=== PATIENT | male | born 1950 | race Caucasian/White ===

== ENCOUNTER 2023-05-15 00:21 | Day surgery (SDC) | payer MEDICARE, SELFPAY ==
[2023-04-18 12:18] VITALS: BMI 27.0
--- NOTE | 2023-05-13 11:14 | SUR.PREOP ---
Patient called regarding upcoming procedure. Voicemail left regarding appointment times.
--- NOTE | 2023-05-14 14:06 | PM.HPGS ---
History of Present Illness History of Present Illness Consent: Risks, benefits, and alternatives have been discussed and questions answered. Patient agrees to proceed with procedure. Chief complaint: neoplasm screening Narrative: Sajan Norman is a 72 year old male Referred for colon cancer screening. His last colonoscopy was about 11 years ago. he apparently had polyps removed at that time. Also his father and brother have had colon cancer Review of Systems Review of Systems: All systems reviewed & are unremarkable except as noted in HPI and below PMFSH Past Medical History Medical History BPH with urinary obstruction Dyslipidemia H pylori ulcer Hypertension Nonischemic cardiomyopathy EF 20% -ICD placed 07/13/2022 [facility] Olecranon bursitis of left elbow MARLIN on CPAP Sleep study 09/09/2015-[facility] 55.8 with SpO2 < 88% for 21% of the time Renal cancer Right kidney, status post right nephrectomy Rotator cuff injury Surgical History Surgical History H/O kidney removal History of nephrectomy, right Family History Family History Other Hypertension Social History Social History Smoking packs per day: 1 Smoking cigarettes per day: 20.0 Years smoked: 30 Smoking pack-years: 30.00 Smoking status: Former smoker Tobacco type: cigarettes Alcohol intake: current Drinks per week: 20 Alcohol use details: HARD LIQUOR Substance use: never Substance use type: does not use Living arrangements: alone Occupation/Education: retired Gender identity (if verbalized by the patient): Male Spiritual care concerns: No Meds Home Medications and Allergies Home Medications Medication Instructions Recorded Confirmed Type tamsulosin 0.4 mg capsule 0.4 mg PO DAILY 12/20/21 05/15/23 History aspirin 81 mg tablet,delayed 81 mg PO DAILY 12/21/21 05/15/23 History release (Adult Aspirin Regimen) ferrous sulfate 325 mg (65 mg 325 mg PO TID 12/21/21 05/15/23 History iron) tablet (Feosol) finasteride 5 mg tablet 5 mg PO DAILY 12/21/21 05/15/23 History etflktjlusao-hvu-kmqpb acid-vit 1 tablet PO DAILY 01/31/22 05/15/23 History K-lycop 400 mcg-20 mcg-370 mcg tablet (One-A-Day Men's 50 Plus (with vitamin K)) furosemide 40 mg tablet 40 mg PO QAM 08/06/22 05/15/23 History hydralazine 50 mg tablet 50 mg PO BID 08/06/22 05/15/23 History metoprolol succinate 25 mg 25 mg PO DAILY 08/06/22 05/15/23 History tablet,extended release 24 hr omeprazole 20 mg capsule,delayed See Rx Instructions .Route 03/07/23 05/15/23 Rx release .COMPLEX #90 caps atorvastatin 20 mg tablet 20 mg PO DAILY 03/20/23 05/15/23 History cholecalciferol (vitamin D3) 25 125 mcg PO DAILY 03/20/23 05/15/23 History mcg (1,000 unit) capsule irbesartan 300 mg tablet 300 mg PO DAILY 03/20/23 05/15/23 History Allergies Allergy/AdvReac Type Severity Reaction Status Date / Time amlodipine AdvReac Intermediate Other Verified 05/15/23 07:30 latex tape AdvReac Intermediate Swelling Uncoded 05/15/23 07:30 Exam Resp: Auscultation: clear to auscultation bilaterally Cardio: Rate: regular rate Rhythm: regular rhythm GI: GI Palp: Yes Soft to palpation and No Tenderness to palpation present (GI) Assessment and Plan Assessment and plan (1) Colon cancer screening: Code(s): Z12.11 - Encounter for screening for malignant neoplasm of colon Status: Acute Assessment and Plan: Colonoscopy with possible biopsy or polypectomy or cautery or injection of substances.
[2023-05-15 07:33] VITALS: BP 137/82; PULSE 90; RESP 16; TEMP 36.1; O2SAT 98
[2023-05-15] MEDS: LACTATED RINGERS 1,000 ML 150 ML IV CONT (07:45)
--- NOTE | 2023-05-15 08:06 | WPDANESEPPF ---
Anes - Initial Pre Proc Eval Procedure: Operation Date: 05/15/23 08:30 Proposed Procedures p Screening Colonoscopy - Raffy Mitchell MD Date/Time: 05/15/23 08:06 Surgeon: Raffy Mitchell MD Pre Op Diagnosis: neoplasm screening Patient Data Age: 72 Gender: M Height: 1.8 m Weight: 87.1 kg Last Vital Signs Temp 97.0 F L 05/15/23 07:33 Pulse 90 05/15/23 07:33 Resp 16 05/15/23 07:33 BP 137/82 05/15/23 07:33 Pulse Ox 98 05/15/23 07:33 O2 Del Method Room Air 05/15/23 07:33 Allergies Allergy/AdvReac Type Severity Reaction Status Date / Time amlodipine AdvReac Intermediate Other Verified 05/15/23 07:30 latex tape AdvReac Intermediate Swelling Uncoded 05/15/23 07:30 Home Medications Medication Instructions Recorded Confirmed Type tamsulosin 0.4 mg capsule 0.4 mg PO DAILY 12/20/21 05/15/23 History aspirin 81 mg tablet,delayed 81 mg PO DAILY 12/21/21 05/15/23 History release (Adult Aspirin Regimen) ferrous sulfate 325 mg (65 mg 325 mg PO TID 12/21/21 05/15/23 History iron) tablet (Feosol) finasteride 5 mg tablet 5 mg PO DAILY 12/21/21 05/15/23 History symnjtehurcy-jqa-vashn acid-vit 1 tablet PO DAILY 01/31/22 05/15/23 History K-lycop 400 mcg-20 mcg-370 mcg tablet (One-A-Day Men's 50 Plus (with vitamin K)) furosemide 40 mg tablet 40 mg PO QAM 08/06/22 05/15/23 History hydralazine 50 mg tablet 50 mg PO BID 08/06/22 05/15/23 History metoprolol succinate 25 mg 25 mg PO DAILY 08/06/22 05/15/23 History tablet,extended release 24 hr omeprazole 20 mg capsule,delayed See Rx Instructions .Route 03/07/23 05/15/23 Rx release .COMPLEX #90 caps atorvastatin 20 mg tablet 20 mg PO DAILY 03/20/23 05/15/23 History cholecalciferol (vitamin D3) 25 125 mcg PO DAILY 03/20/23 05/15/23 History mcg (1,000 unit) capsule irbesartan 300 mg tablet 300 mg PO DAILY 03/20/23 05/15/23 History Patient hx anesthesia problems: none Family hx anesthesia problems: none Results Review: All pre-operative results and documents have been reviewed as part of the pre-operative evaluation. [facility] Past Medical History Medical History BPH with urinary obstruction Dyslipidemia H pylori ulcer Hypertension Nonischemic cardiomyopathy EF 20% -ICD placed 07/13/2022 [facility] Olecranon bursitis of left elbow MARLIN on CPAP Sleep study 09/09/2015-[facility] 55.8 with SpO2 < 88% for 21% of the time Renal cancer Right kidney, status post right nephrectomy Rotator cuff injury Surgical History Surgical History H/O kidney removal History of nephrectomy, right Family History Family History Other Hypertension Social History Social History Smoking packs per day: 1 Smoking cigarettes per day: 20.0 Years smoked: 30 Smoking pack-years: 30.00 Smoking status: Former smoker Tobacco type: cigarettes Alcohol intake: current Drinks per week: 20 Alcohol use details: HARD LIQUOR Substance use: never Substance use type: does not use Living arrangements: alone Occupation/Education: retired Gender identity (if verbalized by the patient): Male Spiritual care concerns: No Anes - Eval Final PreProcedure Day of Procedure 05/15/23 08:06 Patient weight: normal Heart: irregular rhythm Lungs: clear to auscultation Airway: Mallampati scale class III Neurological: alert and oriented Last oral intake: >/= 8 hours ASA classification: III Emergent: no Anesthetic plan: proceed Anesthesia type and monitoring: general GIVS and standard monitoring Results Review: All pre-operative results and documents have been reviewed as part of the pre-operative evaluation. Informed Consent: The patient's anesthetic plan and its attendant risks and benefits were discussed wi
[2023-05-15 08:25] VITALS: BP 108/70; PULSE 80; RESP 17; O2SAT 96
[2023-05-15 08:35] VITALS: BP 111/76; PULSE 86; RESP 24; O2SAT 97
[2023-05-15 08:45] VITALS: BP 133/92; PULSE 80; RESP 19; O2SAT 99
== END 2023-05-15 08:52 | disposition home or self-care (01) ==
PROVIDERS: PCP Physician Assistant Medical; Visit Provider Internal Medicine Gastroenterology
PROC: 0DJD8ZZ Inspection of Lower Intestinal Tract, Via Natural or Artificial Opening Endoscopic (ICD-10-PCS; CPT 45378; principal; 2023-05-15 08:30)
DX: Z12.11 Encounter for screening for malignant neoplasm of colon (principal); K64.8 Other hemorrhoids; D12.8 Benign neoplasm of rectum; Z80.0 Family history of malignant neoplasm of digestive organs; Z79.82 Long term (current) use of aspirin; I10 Essential (primary) hypertension; I42.8 Other cardiomyopathies; G47.33 Obstructive sleep apnea (adult) (pediatric); E78.5 Hyperlipidemia, unspecified; N40.1 Benign prostatic hyperplasia with lower urinary tract symptoms; N13.8 Other obstructive and reflux uropathy; Z85.528 Personal history of other malignant neoplasm of kidney; Z90.5 Acquired absence of kidney; Z87.891 Personal history of nicotine dependence
CPT/HCPCS: 45385; 88305; J2704; J7120

== ENCOUNTER 2024-06-30 00:47 | Day surgery (SDC) | payer MEDICARE, SELFPAY ==
[2024-03-23 10:10] VITALS: BMI 26.5
--- NOTE | 2024-04-05 10:02 | SUR.PREOP ---
0900 attempted to call pt to cancel his procedure due to provider availability. Message left on pt's voicemail. 1000 Called pt's daughter Keisha. Spoke with her about her father's appointment for tomorrow. She said she would get the message to him and have him call me to reschedule his appointment. Gave the daughter my phone number that I could be reached at.
--- NOTE | 2024-04-05 10:30 | SUR.PREOP ---
Pt called back and rescheduled to 06/30 at 830 am.
[2024-06-24 10:30] VITALS: BMI 26.5
--- OUTSIDE RECORDS SUMMARY | 2024-06-30 00:52 | XMS_ITS | Referral Summary ---
Author Organization [facility] Address [address] [place] [address] Care Team Providers Care Fiber Picker Name Role Phone Yusuf Acevedo MD Unavailable [phone] Ro Schafer Primary Care Provider [phone] Allergies Active Allergy Reactions Criticality Noted Date Comments Latex Blisters,Rash High 07/26/2014 Medications multivitamin capsule 02/05/2017Multivitamin, po solid TabletPOdailyCurrent Medication 02/06/20 17 Active omeprazole 20 mg tablet,delaye d release (DR/EC) 02/05/2017Omeprazole, po solid 20 mg Capsule,delayed release (enteric coated)POdailyCurrent Medication 02/06/20 17 Active atorvastatin (LIPITOR) 10 mg tablet 02/05/2017Atorvastatin calcium, po solid 10 mg TabletPOdailyCurrent Medication 02/06/20 17 Active ferrous sulfate 325 mg (65 mg of elemental iron) tablet 02/05/2017Iron, po solid 325(65) mg TabletPOTIDCurrent Medication 02/06/20 17 Active tamsulosin (FLOMAX) 0.4 mg extended release capsule 0.4 mg Active irbesartan (AVAPRO) 300 mg tablet TK 1 T PO D 02/17/20 20 Active cholecalcifer ol (Vitamin D3) 1,000 unit capsule Take 1,000 Units by mouth daily Active Active Problems Problem Noted Date Diagnosed Date Renal cell carcinoma of right kidney 04/16/2019 Immunizations Immunization Administration Dates Next Due Influenza, Quadrivalent, Spl it, Preservative Free, Intramuscular 01/26/2019 Influenza, Unspecified 12/21/2019,01/30/2019 [facility]OST[facility] LIVE 08/08/2016,07/27/2015 Social History Tobacco Use Types Packs/Day Years Used Date Smoking Tobacco: Former Cigarettes 0.1 30 Smokeless Tobacco: Never Tobacco Cessation:Counseling Given: No Alcohol Use Standard Drinks/Week Comments Yes 0 (1 standard drink = 0.6 oz pur e alcohol) Personal Safety Answer Date Recorded Getting School Help Needed Not on file 05/31 Sex and Gender Information Value Date Recorded Sex Assigned at Not on file Legal Sex Male 8:18 AM CDT Gender Identity Not on file Sexual Orientation Not on file Last Filed Vital Signs Vital Sign Reading Time Taken Comments Blood Pressure 168/120 04/21/2020 10:14 AM POTABLE WATER TREATMENT OPERATOR RN informed Pulse 86 04/21/2020 10:14 AM POTABLE WATER TREATMENT OPERATOR Temperature 36.8 C (98.2 F) 04/21/2020 10:14 AM POTABLE WATER TREATMENT OPERATOR Respiratory Rate 18 04/21/2020 10:14 AM POTABLE WATER TREATMENT OPERATOR Oxygen Saturation 97% 04/21/2020 10:14 AM POTABLE WATER TREATMENT OPERATOR Inhaled Oxygen Concentration - - Weight 93 kg (205 lb) 05/31/2022 12:25 PM POTABLE WATER TREATMENT OPERATOR Height 180.3 cm (5' 11 ) 05/31/2022 12:25 PM POTABLE WATER TREATMENT OPERATOR Body Mass Index 28.59 05/31/2022 12:25 PM POTABLE WATER TREATMENT OPERATOR Plan of Treatment Not on file Insurance [facility]IC[facility]AGE [facility] Address: [facility] [address] [place] [address] [place] [address] MEDICARE ADVANTAGE [facility] MEDIC[facility] Address: [address] [address] Care Teams Fiber Picker Relationship Specialty Start Date End Date Ro Schafer PA [address] [place] [id number] PCP - General Physician Supervisor Production 05/29/22 Yusuf Acevedo MD Medical Oncologist/Supervisor [employer] Hematology and Oncology 04/13/20
--- OUTSIDE RECORDS SUMMARY | 2024-06-30 00:52 | XMS_ITS | Encounter Summary ---
Author Organization [facility] Address [address] [place] [address] Care Team Providers Care Compensation And Benefits Advisor Name Role Phone Victor Manuel Grayson MD Primary Care Provider [phone] Ro Schafer Primary Care Provider [phone] Encounter Details Date Type Department Care Team (Late st Contact Info) Description [facility] [address] [id number] Claudy Casey MA Social History Tobacco Use Types Packs/Day Years Used Date Smoking Tobacco: Former Cigarettes Q uit: 2006 Smokeless Tobacco: Never Alcohol Use Standard Drinks/Week Comments Yes 33.3 (1 standard drink = 0.6 oz pure alcohol) Sex and Gender Information Value Date Recorded Sex Assigned at Not on file Legal Sex Male 10:22 PM DRAFTER CHIEF DESIGN Gender Identity Not on file Sexual Orientation Not on file COVID-19 Exposure Response Date Recorded In the last 10 days, have yo u been in contact with someone who was confirmed or suspected to have Coronavirus/COVID-19? No / Unsure 08/17/2021 9:00 AM CDT documented as of this encounter Plan of Treatment Upcoming Encounters Date Type Department Care Team (Late st Contact Info) Description 07/27/2024 11:15 AM CDT Allied Health/Nurse Visit [facility], [facility] [address] [place], [place] [id number] Miller Jones MD [facility] [address] [place], [place] [id number] 09/11/2024 11:45 AM CDT Office Visit [facility] [address] [place] [id number] Jordan Peter MD [facility]. [facility] [address] [place], [place] [id number] 03/03/2025 10:45 AM DRAFTER CHIEF DESIGN Office Visit [facility] [address] [place] [address] Miller Jones MD [facility]. [facility] [address] [place], [place] [id number] documented as of this encounter Procedures Procedure Name Priority Date/Time Associated Diagnosis Comments CBC (OUTSIDE LAB) Routine 12/20/2020 COMPREHENSIVE METABOLIC PANEL Routine 12/20/2020 LIPID PANEL Routine 12/20/2020 THYROID STIM HORMONE TSH Routine 12/20/2020 documented in this encounter Results * CBC (OUTSIDE LAB) (12/20/2020) WBC 4.9 HGB 14.6 HCT 44.6 PLT 187 12/20/2020 us [facility] Abstract LAB-OUTSIDE/ABSTRACTED Final Result * THYROID STIM HORMONE, TSH (12/20/2020) Pathologist [facility] TSH 1.66 12/20/2020 us Doc [facility] Abstract LABORATORY Edited Resul t - Final * COMPREHENSIVE METABOLIC PANEL (12/20/2020) Pathologist [facility] SODIUM S/P/B 138 POTASSIUM S/P/B 4.0 CO2 27 CHLORIDE S/P/B 104 GLUCOSE 109 mg/dL CALCIUM S/P/B 9.2 BUN 22 CREATININE S/P/B 1.14 0.7 - 1.3 EGFR AFR. AMER. 75 <=90 EGFR NON-AFR. AMER. 65 <=90 ALKALINE PHOSPHATASE S/P/B 47 ALT 27 AST 20 BILIRUBIN TOTAL S/P/B 1.0 ALBUMIN S/P/B 4.0 3.5 - 5.0 TOTAL PROTEIN S/P/B 6.3 GLOBULIN 2.3 12/20/2020 us Doc [facility] Abstract LABORATORY Final Result * LIPID PANEL (12/20/2020) CHOLESTEROL 212 HDL 81 TRIGLYCERIDES 274 NON HDL CHOLESTEROL 131 LDL (CALCULATED) 92 12/20/2020 us Doc [facility] Abstract LABORATORY Edited Resul t - Final documented in this encounter Visit Diagnoses Not on filedocumented in this encounter Additional Health Concerns Infection Onset Date Last Indicated Resolved Time COVID-19 Rule Out 03/12/2022 03/12/2022 03/12/2022 11:12 AM DRAFTER CHIEF DESIGN documented as of this encounter Care Teams Compensation And Benefits Advisor Relationship Specialty Start Date End Date Victor Manuel Grayson MD [address] [place] [id number] PCP - General INTERNAL MEDICINE 04/20/19 12/05/21 Ro Schafer PA [address] [place] [id number] PCP - General PHYSICIAN COMBINE MECHANIC 12/06/21 documented as of this encounter
--- OUTSIDE RECORDS SUMMARY | 2024-06-30 00:52 | XMS_ITS | Clinical Summary ---
Author Organization [facility] Address [address] [place] [address] Care Team Providers Care Churn Driller Helper Name Role Phone Yusuf Acevedo MD Unavailable [phone] Ro Schafer Primary Care Provider [phone] Allergies Active Allergy Reactions Criticality Noted Date [...] 01/26/2019 Influenza, Unspecified 12/21/2019,01/30/2019 ZOSTER LIVE 08/08/2016,07/27/2015 Surgical History Surgery Date Site/Laterality Comments COLONOSCOPY Family History Medical History Relation Name Comments Prostate cancer Brother 1 Kidney cancer Brother 2 Stomach cancer Brother 3 Colon cancer Father Relation Name Status Comments Brother 1 Alive Brother 2 Brother 3 Father Mother Social History Tobacco Use Types Packs/Day Years [...] on file Sexual Orientation Not on file Obstetrics History Last Filed Vital Signs Vital Sign Reading Time Taken Comments Blood Pressure 168/120 04/21/2020 10:14 AM GELATIN DYNAMITE PACKING OPERATOR RN informed Pulse 86 04/21/2020 10:14 AM GELATIN DYNAMITE PACKING OPERATOR Temperature 36.8 C (98.2 F) 04/21/2020 10:14 AM GELATIN DYNAMITE PACKING OPERATOR Respiratory Rate 18 04/21/2020 10:14 AM GELATIN DYNAMITE PACKING OPERATOR Oxygen Saturation 97% 04/21/2020 10:14 AM GELATIN DYNAMITE PACKING OPERATOR Inhaled Oxygen Concentration - - Weight 93 kg (205 lb) 05/31/2022 12:25 PM GELATIN DYNAMITE PACKING OPERATOR Height 180.3 cm (5' 11 ) 05/31/2022 12:25 PM GELATIN DYNAMITE PACKING OPERATOR Body Mass Index 28.59 05/31/2022 12:25 PM GELATIN DYNAMITE PACKING OPERATOR Plan of Treatment Health Maintenance Due Date Last Done Comments Colon Cancer Screening-Colonoscopy 1950 Depression Screening 1950 Fall Risk Assessment 1950 Hepatitis C Screening 1950 Prostate Cancer Screening-PSA 1950 DTaP/Tdap/Td Vaccine (1 - Tdap) 1961 Hepatitis B Screening 1968 Pneumococcal vaccine 65+ (1 of 1 - PCV) 2000 Abdominal Aortic Aneurysm (A AA) Screen 07/06/2015 Well Visit 65+ 07/06/2015 Zoster Vaccine (2 of 3) 10/03/2016 08/08/2016, 07/26 Influenza Vaccine (#1) 2023 0, 01/30/2019, 01/26/2019 Insurance MEDICARE ADVANTAGE [facility] MED[facility] Address: [facility] [address] [place] [address] MEDICARE ADVANTAGE [facility] MEDICARE Address: [facility] [address] [place] [address] Care Teams Churn Driller Helper Relationship Specialty Start Date End Date Ro Schafer PA [address] [place] [id number] PCP - General Physician Long Term Care Pharmacist 05/29/22 Yusuf Acevedo MD Medical Oncologist/Plan Checker Hematology and Oncology 04/13/20
--- OUTSIDE RECORDS SUMMARY | 2024-06-30 00:52 | XMS_ITS | Clinical Summary ---
Author Organization [facility] Address Formerly [facility] [place] [address] Care Team Providers Care Compliance Associate Name Role Phone Ro Schafer Primary Care Provider [phone] Allergies Active Allergy Reactions Criticality Noted Date Comments Latex Contact Dermatitis High 07/26/2014 Medications Multiple Vitamin (MULTIVITAMIN) capsule Take 1 capsule by mouth daily. 02/05/2017 Active tamsulosin 0.4 MG Cap TK 1 C PO HS 07/11/2019 Active finasteride 5 MG tablet Take 1 tablet (5 mg total) by mouth daily. 08/17/2021 Active omeprazole 20 MG capsule Take 1 capsule (20 mg total) by mouth daily. 07/26/2021 Active aspirin EC (ECOTRIN) 81 MG tablet Take 1 tablet (81 mg total) by mouth daily. Active cholecalciferol (VITAMIN D3) 125 MCG (5000 UT) Tab Take 1 tablet (5,000 Units total) by mouth daily. Active atorvastatin (LIPITOR) 20 MG tablet Take 1 tablet (20 mg total) by mouth nightly at bedtime. 90 tablet 3 07/31/2023 Active furosemide (LASIX) 40 MG tablet TAKE 1 TABLET(40 MG) BY MOUTH DAILY 90 tablet 1 03/16/2024 Active hydrALAZINE (APRESOLINE) 50 MG tablet TAKE 1 TABLET(50 MG) BY MOUTH TWICE DAILY 180 tablet 1 03/27/2024 Active metoprolol succinate ER (TOPROL-XL) 50 MG 24 hr tablet Take 1 tablet (50 mg total) by mouth daily. New dose 90 tablet 1 04/29/2024 Active irbesartan (AVAPRO) 300 MG tablet TAKE 1 TABLET BY MOUTH DAILY 90 tablet 1 05/18/2024 Active Active Problems Problem Noted Date Diagnosed Date AICD (automatic cardioverter/defibrillator) pres ent 07/13/2022 Overview (07/26/2022): [employer] Vigilant VVI/ICD implanted 07/13/2022 for NICM Assessment & Plan (02/08/2023 7:52 AM SAND CONDITIONER): Dual-chamber ICD implanted on July 13, 2022 for primary prevention Followed by EP Assessment & Plan (08/03/2022 10:20 AM CDT): He is status post primary prevention ICD. Continue to follow with device clinic. Non-ischemic cardiomyopathy ([facility]) Assessment & Plan (03/06/2024 10:47 AM SAND CONDITIONER): He is s/p single-chamber ICD for primary prevention. He follows with EP. Recent device interrogation shows a properly functioning device. He continues on GDMT with Toprol Xl, Irbesartan, Lasix and hydralazine. He is euvolemic on exam and is not experiencing any shortness of breath, weight changes, or lower extremity swelling. Advised patient to monitor for the symptoms. We can repeat echo at next visit. Assessment & Plan (02/12/2023 9:54 AM SAND CONDITIONER): Left heart cath completed in April 2022 which revealed luminal irregularities No systolic dysfunction with a left ventricular systolic function 20 to 25% cardiac MRI was completed which revealed dilation of the left and right ventricles compatible with dilated cardiomyopathy moderate aortic regurgitation and mild pulmonic regurgitation. He is status post single-chamber ICD for primary prevention and is followed by EP We will continue with optimal medical management with irbesartan, metoprolol, and Lasix Weight are steady NYHA class I-II Chronic systolic HF (heart failure) ([facility]) 07/06/2022 Assessment & Plan (08/03/2022 10:19 AM CDT): He has chronic systolic heart failure with a nonischemic cardiomyopathy and ejection fraction 20%. Recommend continuing Entresto, metoprolol succinate and hydralazine. Continue diuretics. May need to consider SGLT2 inhibitor. Stop irbesartan. Assessment & Plan (07/06/2022 5:31 AM CDT): He has chronic systolic heart failure with a nonischemic cardiomyopathy and ejection fraction 20%. Recommend uptitrating Entresto, Continuing metoprolol succinate and hydralazine. Continue diuretics. May need to consider SGLT2 inhibitor. Also recommend primary prevention ICD. His QRS does not appear to be long enough to qualify for biventricular pacing. MARLIN (obstructive sleep apnea) 03/27/2022 Assessment & Plan (02/08/2023 7:53 AM SAND CONDITIONER): CPAP compliance encouraged Assessment & Plan (03/27/2022 1:26 PM SAND CONDITIONER): Compliant with CPAP Followed by primary SOB (shortness of breath) 03/16/2022 Assessment & Plan (03/16/2022 11:55 AM SAND CONDITIONER): With some congestive findings on CTA chest Echo ordered - I will try to have this moved up This could be anginal equivalent Although, I do hear a murmur left sternal border - I will hold on ischemic eval for now until echo is performed Elevated troponin 03/16/2022 Assessment & Plan (03/16/2022 11:52 AM SAND CONDITIONER): Mild elevation Will wait on echo for now Plan accordingly afterwards Abnormal EKG 08/18/2021 Assessment & Plan (08/18/2021 1:46 PM CDT): I suggest that he have a repeat EKG in the office today given the poor R wave progression seen on old EKG suggestive of anteroseptal myocardial infarction. His EKG mostly shows normal sinus rhythm with left axis deviation, left ventricular hypertrophy and likely a left anterior fascicular block. Benign essential hypertension Assessment & Plan (03/06/2024 10:40 AM SAND CONDITIONER): Blood pressure is well-controlled in office today. Continue irbesartan, hydralazine, Lasix. Assessment & Plan (02/12/2023 9:55 AM SAND CONDITIONER): Well-controlled on current regimen and continued on irbesartan 300 mg a day, metoprolol 25 mg daily, hydralazine 50 mg twice a day. Assessment & Plan (08/03/2022 10:19 AM CDT): Continue antihypertensive therapy. Assessment & Plan (07/06/2022 5:30 AM CDT): Continue antihypertensive therapy. Assessment & Plan (03/16/2022 11:53 AM SAND CONDITIONER): Starting hydralazine 50mg BID Assessment & Plan (08/18/2021 1:46 PM CDT): His blood pressure was elevated in the office. I recommended that he check his blood pressure at home 2 hours after taking his medication. He should continue irbesartan. Dyslipidemia Assessment & Plan (03/06/2024 10:47 AM SAND CONDITIONER): Patient brought in lab results that show LDL of 82. Continue atorvastatin. Assessment & Plan (02/08/2023 7:53 AM SAND CONDITIONER): Lipid panel reviewed from March 2022 with well-controlled LDL Component Ref Range & Units 03/20/22 1105 CHOLESTEROL <200.0 MG/DL 140 TRIGLYCERIDES <150 MG/DL 97 HDL >40.0 MG/DL 83 LDL (CALCULATED) <100 MG/DL 38 NON HDL CHOLESTEROL <130 MG/DL 57 Continued on atorvastatin 20 mg a day Assessment & Plan (08/03/2022 10:20 AM CDT): His lipids show an elevated triglycerides and his LDL is less than 100. He does have risk factors for coronary artery disease. Continue atorvastatin. Assessment & Plan (03/16/2022 11:54 AM SAND CONDITIONER): With noted atherosclerosis on CTA Increasing atorva to 20mg daily Repeat lipid alt and ck in 8 weeks Assessment & Plan (08/18/2021 1:49 PM CDT): His lipids show an elevated triglycerides and his LDL is less than 100. He does have risk factors for coronary artery disease. He should pursue lifestyle modifications at this time, but if his lipids still are elevated, he may need to be considered for an increase in statin therapy. Encounters Date Type Department Care Team Description 04/29/2024 8:00 AM SAND CONDITIONER Allied Health/Nurse Visit [facility] myriam [facility], [address] [address] Miller Jones MD Remote Device Check 04/27/2024 12:10 PM SAND CONDITIONER Allied Health/Nurse Visit [facility], [address] [address] Miller Jones MD Remote Device Check from Last 3 Months Immunizations Name Administration Dates Next Due Afluria 36 MONTHS+ (Prefilled Syringe IIV4) 12/31 Influenza (Generic) 12/21/2019,01/30/2019 Influenza Adult (Generic) 01/26/2019 Zoster (Zostavax) 62505 Unt/0.65Ml 08/08/2016, Family History Relation Status Comments Father Mother Social History Tobacco Use Types Packs/Day Years Used Date Smoking Tobacco: Former Cigarettes Q uit: 2006 Smokeless Tobacco: Never Tobacco Cessation:Counseling Given: Not Answered Alcohol Use Standard Drinks/Week Comments Yes 46.7 (1 standard drink = 0.6 oz pure alcohol) per week Sex and Gender Information Value Date Recorded Sex Assigned at Not on file Legal Sex Male 10:22 PM SAND CONDITIONER Gender Identity Not on file Sexual Orientation Not on file Last Filed Vital Signs Vital Sign Reading Time Taken Comments Blood Pressure 130/80 03/06/2024 10:18 AM SAND CONDITIONER Pulse 69 03/06/2024 10:18 AM SAND CONDITIONER Temperature 36.6 C (97.9 F) 04/10/2022 11:36 AM SAND CONDITIONER Respiratory Rate 16 07/13/2022 3:30 PM CDT Oxygen Saturation 97% 03/06/2024 10:18 AM SAND CONDITIONER Inhaled Oxygen Concentration - - Weight 86.6 kg (191 lb) 03/06/2024 10:18 AM SAND CONDITIONER Height 180.3 cm (5' 11 ) 03/06/2024 10:18 AM SAND CONDITIONER Body Mass Index 26.64 03/06/2024 10:18 AM SAND CONDITIONER Plan of Treatment Upcoming Encounters Date Type Department Care Team (Late st Contact Info) Description 07/27/2024 11:15 AM CDT Allied Health/Nurse Visit [place] [facility] [facility], [address] [place] [address] Miller Jones MD [facility]. [address], [place] [address] 09/11/2024 11:45 AM CDT Office Visit [facility] [address] [place] [phone] Jordan Peter MD [facility]. [facility] [place] [address], [place] [address] 03/03/2025 10:45 AM SAND CONDITIONER Office Visit [facility] [address] [place] [phone] Miller Jones MD [facility]. [facility] [place] [address], [place] [address] Health Maintenance Due Date Last Done Comments Colorectal Cancer Screening Colonoscopy (10 Years) 1950 Pneumococcal Vaccine: 65+ Years (1 of 2 - PCV) 1956 Hepatitis C 1968 DTaP, Tdap and Td Vaccines ( 1 - Tdap) 1969 RSV Immunization or 60+ Years (1 - Risk 60-74 years 1-dose series) 2010 Annual Medicare Wellness Visit 07/06/2015 Zoster Vaccines (2 of 3) 10/03/2016 017, 07/27/2015 COVID-19 Vaccine (1 - 2023-2 5 season) 2023 AAA SCREENING Completed 03/12/2022 Meningococcal B Vaccine Aged Out No l onger eligible based on patient's age to complete this topic Meningococcal Vaccine Aged Out No myriam josiane eligible based on patient's age to complete this topic RSV Immunizations Under 20 Months Aged Out No longer eligible b ased on patient's age to complete this topic Medical Devices Implanted Type Area Casting Director Device Identifier Shelf Expiration Date Model / Serial / Lot Bs Icd-07/13/2022 Implanted:Qty : 1 on 07/13/2022 by Miller Jones MD ICD Left: Chest [employer] [id number] 10/12/2023 [id number] / [id number] / Rv Lead Implant-2022 Implanted:Qty : 1 on 07/13/2022 by Miller Jones MD Lead Implant [employer] [id number] 01/12/2024 [id number] / [id number] / Procedures Procedure Name Priority Date/Time Associated Diagnosis Comments CTA CHEST STAT 03/12/2022 12:15 PM SAND CONDITIONER from Last 3 Months or Most Recently Relevant to Health Maintenance Results * CTA CHEST (03/12/2022 12:15 PM SAND CONDITIONER) Anatomical Region Laterality Modality Chest Computed Tomogra phy 03/12/2022 1:14 PM SAND CONDITIONER Impressions 03/12/2022 1:21 PM SAND CONDITIONER IMPRESSION: 1. There is no acute pulmonary embolism to the first subsegmental pulmonary artery level. 2. There is reflux of intravenous contrast within the hepatic veins, which can be seen with elevated right heart pressures. A follow-up echocardiogram could be considered for evaluation. 3. Mild bilateral bronchial wall thickening, which can be seen with volume overload, reactive airway disease or small airway infection/inflammation. 4. Trace right pleural effusion. 5. Cardiomegaly. Ordered By: CAIT MCINTOSH Interpreted By: Ligia Medrano MD, 03/12/2022 1:14 PM Narrative 03/12/2022 1:21 PM SAND CONDITIONER PROCEDURE: CTA CHEST. HISTORY: Evaluate for pulmonary embolism. Chest pain. TECHNIQUE: Contrast enhanced helical CT pulmonary angiography was then performed (Isovue- 370, 80 mL). Routine transaxial and post-processed (sagittal and coronal MPR) reformations of the acquired data sets were obtained. Standard 3-D (MIP) reformations of the acquired data sets were also obtained. A dose lowering technique was used for this procedure, which may include, but is not limited to, dose reduction technique, automated exposure control, the use of iterative reconstruction, and ALARA (As Low As Reasonably Achievable) / Image Gently techniques. COMPARISON: PA and lateral chest radiograph, 04/20/2019. AP chest radiograph, 03/12/2022 PULMONARY CTA FINDINGS: This is a diagnostic quality helical CT pulmonary angiogram. There is no acute pulmonary embolism to the first subsegmental pulmonary artery level. There is reflux of intravenous contrast within the hepatic veins, which is indicative of elevated right heart pressures. OTHER FINDINGS: Support Devices: None. Heart/Pericardium/Great Vessels: Cardiac size is enlarged. Calcific coronary artery atherosclerosis cannot be accurately evaluated on this contrast-enhanced exam. There is no pericardial effusion. There is mild thoracic aortic and branch vessel atherosclerosis, portions calcific. The main pulmonary artery is dilated measuring up to 4.0 cm, which can be seen pulmonary hypertension. The mid ascending thoracic aorta measures up to 3.8 cm. Pleural Spaces: There is a trace right pleural effusion. The left pleural spaces clear. Mediastinum/Skylar: There is no mediastinal or hilar lymph node enlargement. Multiple prominent mediastinal lymph nodes measuring up to 7 mm in short axis. Neck Base/Chest Wall/Diaphragm/Upper Abdomen: There is no supraclavicular or axillary lymph node enlargement. There are multiple parapelvic/peripelvic cysts. There is a 10 mm left hepatic lobe cysts Limited imaging through the upper abdomen is otherwise within normal limits. Multilevel degenerative changes of the thoracal lumbar spine is present. There is a 6.4 cm intramuscular lipoma involving the left supraspinatus. There is a 4.1 cm intramuscular lipoma involving the left subscapularis. Lungs/Central Airways: The trachea and central airways are clear normal in caliber. There is bilateral bronchial wall thickening. No focal consolidation is present. No suspicious pulmonary nodules are identified. Procedure Note Ligia Medrano MD - 03/12/2022 PROCEDURE: CTA CHEST. HISTORY: Evaluate for pulmonary embolism. Chest pain. TECHNIQUE: Contrast enhanced helical CT pulmonary angiography was thenperformed (Isovue-370, 80 mL). Routine transaxial and post-processed(sagittal and coronal MPR) reformations of the acquired data sets wereobtained. Standard 3-D (MIP) reformations of the acquired data sets werealso obtained. A dose lowering technique was used for this procedure, which may include,but is not limited to, dose reduction technique, automated exposurecontrol, the use of iterative reconstruction, and ALARA (As Low AsReasonably Achievable) / Image Gently techniques. COMPARISON: PA and lateral chest radiograph, 04/20/2019. AP chestradiograph, 03/12/2022 PULMONARY CTA FINDINGS: This is a diagnostic quality helical CT pulmonaryangiogram. There is no acute pulmonary embolism to the first subsegmentalpulmonary artery level. There is reflux of intravenous contrast within thehepatic veins, which is indicative of elevated right heart pressures. OTHER FINDINGS: Support Devices: None. Heart/Pericardium/Great Vessels: Cardiac size is enlarged. Calcific coronary artery atherosclerosis cannot be accuratelyevaluated on this contrast-enhanced exam. There is no pericardial effusion. There is mild thoracic aortic and branch vessel atherosclerosis,portions calcific. The main pulmonary artery is dilated measuring up to 4.0 cm, whichcan be seen pulmonary hypertension. The mid ascending thoracic aortameasures up to 3.8 cm. Pleural Spaces: There is a trace right pleural effusion. The left pleuralspaces clear. Mediastinum/Skylar: There is no mediastinal or hilar lymph nodeenlargement. Multiple prominent mediastinal lymph nodes measuring up to 7mm in short axis. Neck Base/Chest Wall/Diaphragm/Upper Abdomen: There is no supraclavicularor axillary lymph node enlargement. There are multipleparapelvic/peripelvic cysts. There is a 10 mm left hepatic lobe cystsLimited imaging through the upper abdomen is otherwise within normallimits. Multilevel degenerative changes of the thoracal lumbar spine ispresent. There is a 6.4 cm intramuscular lipoma involving the leftsupraspinatus. There is a 4.1 cm intramuscular lipoma involving the leftsubscapularis. Lungs/Central Airways: The trachea and central airways are clear normalin caliber. There is bilateral bronchial wall thickening. No focalconsolidation is present. No suspicious pulmonary nodules areidentified. IMPRESSION: 1. There is no acute pulmonary embolism to the first subsegmentalpulmonary artery level. 2. There is reflux of intravenous contrast within the hepatic veins,which can be seen with elevated right heart pressures. A follow-upechocardiogram could be considered for evaluation. 3. Mild bilateral bronchial wall thickening, which can be seen withvolume overload, reactive airway disease or small airwayinfection/inflammation. 4. Trace right pleural effusion. 5. Cardiomegaly. Ordered By: CAIT MCINTOSH Interpreted By: Ligia Medrano MD, 03/12/2022 1:14 PM Cait Mcintosh CONFIGURATION MANAGEMENT ADMINISTRATOR CT Final Re sult from Last 3 Months or Most Recently Relevant to Health Maintenance Insurance [facility] Advance Directives * Full Code (Latest Code Status on File) Date Activated Date Inactivated Comments 04/10/2022 4:58 PM 04/10/2022 7:42 PM Care Teams Compliance Associate Relationship Specialty [place] [address] [place] [id number] PCP - General PHYSICIAN LINK TRAINER TEACHER 12/06/21
--- OUTSIDE RECORDS SUMMARY | 2024-06-30 00:52 | XMS_ITS | Encounter Summary ---
Author Organization [facility] Address [address] [place] [address] Care Team Providers Care Rn Ortho Name Role Phone SchaferRo cornelius PEPE Primary Care Provider [phone] Encounter Details Date Type Department Care Team (Late Contact Info) Description 04/09/2022 Hospital Orders Only [place] [facility], [facility] [address] [place], [place] [phone] Jordan Peter MD [facility]. [facility] [address] [place], [place] [phone] Social History Tobacco Use Types Packs/Day Years Used Date Smoking Tobacco: Former Cigarettes Q uit: 2006 Smokeless Tobacco: Never Alcohol Use Standard Drinks/Week Comments Yes 46.7 (1 standard drink = 0.6 oz pure alcohol) per week Sex and Gender Information Value Date Recorded Sex Assigned at Not on file Legal Sex Male 10:22 PM TICKET AGENT Gender Identity Not on file Sexual Orientation Not on file COVID-19 Exposure Response Date Recorded In the last 10 days, have yo u been in contact with someone who was confirmed or suspected to have Coronavirus/COVID-19? No / Unsure 04/10/2022 10:56 AM TICKET AGENT documented as of this encounter Plan of Treatment Upcoming Encounters Date Type Department Care Team (Late Contact Info) Description 07/27/2024 11:15 AM CDT Allied Health/Nurse Visit [place] [facility] [facility], [facility] [address] [place], [place] [phone] [facility] [address] [place] [address] 09/11/2024 11:45 AM CDT Office Visit [place] [facility] [address] [place] [phone] Jordan Peter MD [facility]. [address] [place] [address] 03/03/2025 10:45 AM TICKET AGENT Office Visit [facility] [address] [place] [address] [facility]. [facility] [address] [place] [address] documented as of this encounter Visit Diagnoses Not on filedocumented in this encounter Care Teams Rn Ortho Relationship Specialty Start Date End Date Ro Schafer PA [address] [place] [phone] PCP - General PHYSICIAN MASTER PLANNER 12/06/21 documented as of this encounter
--- OUTSIDE RECORDS SUMMARY | 2024-06-30 00:52 | XMS_ITS | Encounter Summary ---
Author Organization [facility] Address [address] [place] [address] Care Team Providers Care Diet Clerk Name Role Phone Gilmar Ro CANTU Primary Care Provider [phone] Encounter Details Date Type Department Care Team (Late st Contact Info) Description 04/04/2022 Abstract [facility] [address] [place], [place] [phone] Claudy Casey MA Social History Tobacco Use Types Packs/Day Years Used Date Smoking Tobacco: Former Cigarettes Q uit: 2006 Smokeless Tobacco: Never Alcohol Use Standard Drinks/Week Comments Yes 46.7 (1 standard drink = 0.6 oz pure alcohol) per week Sex and Gender Information Value Date Recorded Sex Assigned at Not on file Legal Sex Male 10:22 PM CORRECTIONS CASEWORKER Gender Identity Not on file Sexual Orientation Not on file COVID-19 Exposure Response Date Recorded In the last 10 days, have yo u been in contact with someone who was confirmed or suspected to have Coronavirus/COVID-19? No / Unsure 03/20/2022 10:31 AM CORRECTIONS CASEWORKER documented as of this encounter Plan of Treatment Upcoming Encounters Date Type Department Care Team (Late st Contact Info) Description 07/27/2024 11:15 AM CDT Allied [facility] [address] [place], [place] [phone] Miller Jones MD [facility]. [facility] [address] [place], [place] [phone] 09/11/2024 11:45 AM CDT Office Visit [facility] [address] [place] [phone] Jordan Peter MD [facility]. [facility] [address] [place], [place] [phone] 03/03/2025 10:45 AM CORRECTIONS CASEWORKER Office Visit [facility] [address] [place] [phone] Miller Jones MD [facility]. [facility] [address] [place], [place] [phone] documented as of this encounter Procedures Procedure Name Priority Date/Time Associated Diagnosis Comments LIPID PANEL Routine 02/20/2023 BUN (OUTSIDE LAB) Routine 04/13/2022 HEMATOCRIT Routine 04/13/2022 CREATININE Routine 04/13/2022 BASIC METABOLIC PANEL Routine 04/03/2022 documented in this encounter Results * LIPID PANEL (02/20/2023) Pathologist [facility] CHOLESTEROL 210 TRIGLYCERIDES 207 HDL 84 LDL (CALCULATED) 96 NON HDL CHOLESTEROL 126 us Default History Genericprovider LABORATORY Edited Result - Final * HEMATOCRIT (04/13/2022) Pathologist [facility] HCT 40.4 04/13/2022 us Default History Genericprovider LABORATORY Edited Result - Final * CREATININE (04/13/2022) Pathologist [facility] CREATININE S/P/B 1.11 0.7 - 1.3 EGFR NON-AFR. AMER. 71 <=90 04/13/2022 us Default History Genericprovider LABORATORY Final Result * BUN (OUTSIDE LAB) (04/13/2022) BUN 23 04/13/2022 us Default History Genericprovider LAB-OUTSIDE/ABST RACTED Final Result * BASIC METABOLIC PANEL (04/03/2022) SODIUM S/P/B 141 POTASSIUM S/P/B 3.9 CO2 31 CHLORIDE S/P/B 103 GLUCOSE 87 mg/dL CALCIUM S/P/B 9.1 BUN 19 CREATININE S/P/B 1.23 0.7 - 1.3 EGFR NON-AFR. AMER. 63 <=90 04/03/2022 us Default History Genericprovider LABORATORY Final Result documented in this encounter Visit Diagnoses Not on filedocumented in this encounter Care Teams Diet Clerk Relationship Specialty Start Date End Date Ro Schafer PA [address] [place] [address] PCP - General PHYSICIAN DIRECTOR OF GRADUATE ADMISSIONS 12/06/21 documented as of this encounter
[2024-06-30 07:11] VITALS: BP 162/92; PULSE 66; RESP 22; TEMP 36.2; O2SAT 99; BMI 28.0
[2024-06-30] MEDS: LACTATED RINGERS 1,000 ML 150 ML IV CONT (07:15)
--- NOTE | 2024-06-30 08:05 | WPDANESEPPF ---
Anes - Initial Pre Proc Eval Procedure: Operation Date: 06/30/24 08:30 Proposed Procedures p Esophagogastroduodenoscopy - Sylvester Rg MD Date/Time: 06/30/24 08:05 Surgeon: Sylvester Rg MD Pre Op Diagnosis: GERD/Melena Patient Data Age: 73 Gender: M Height: 1.78 m Weight: 88.9 kg Last Vital Signs Temp 97.1 F L 06/30/24 07:11 Pulse 66 06/30/24 07:11 Resp 22 H 06/30/24 07:11 BP 162/92 H 06/30/24 07:11 Pulse Ox 99 06/30/24 07:11 O2 Del Method Room Air 06/30/24 07:11 Allergies Allergy/AdvReac Type Severity Reaction Status Date / Time amlodipine AdvReac Intermediate Other Verified 06/30/24 07:08 latex tape AdvReac Intermediate Swelling Uncoded 06/30/24 07:08 Home Medications ?Medication ?Instructions ?Recorded ?Confirmed ?Type tamsulosin 0.4 mg capsule 0.4 mg PO DAILY 12/20/21 06/30/24 History aspirin 81 mg tablet,delayed 81 mg PO DAILY 12/21/21 06/30/24 History release (Adult Aspirin Regimen) finasteride 5 mg tablet 5 mg PO DAILY 12/21/21 06/30/24 History gzqvwmuglfic-frs-efdtn acid-vit 1 tablet PO DAILY 01/31/22 06/30/24 History K-lycop 400 mcg-20 mcg-370 mcg tablet (One-A-Day Men's 50 Plus (with vitamin K)) furosemide 40 mg tablet 40 mg PO QAM 08/06/22 06/30/24 History hydralazine 50 mg tablet 50 mg PO BID 08/06/22 06/30/24 History metoprolol succinate 25 mg 25 mg PO DAILY 08/06/22 06/30/24 History tablet,extended release 24 hr atorvastatin 20 mg tablet 20 mg PO DAILY 03/20/23 06/30/24 History cholecalciferol (vitamin D3) 25 125 mcg PO DAILY 03/20/23 06/30/24 History mcg (1,000 unit) capsule irbesartan 300 mg tablet 300 mg PO DAILY 03/20/23 06/30/24 History cyanocobalamin (vitamin B-12) 1,000 mcg PO DAILY 03/09/24 06/30/24 History 1,000 mcg tablet ferrous sulfate 325 mg (65 mg 325 mg PO DAILY 03/09/24 06/30/24 History iron) tablet omeprazole 20 mg capsule,delayed 20 mg PO DAILY #90 caps 05/18/24 06/30/24 Rx release Patient hx anesthesia problems: none Family hx anesthesia problems: none Results Review: All pre-operative results and documents have been reviewed as part of the pre-operative evaluation. [facility] Past Medical History Medical History Vitamin D deficiency Renal cancer Right kidney, status post right nephrectomy Nonischemic cardiomyopathy EF 20% -ICD placed 07/13/2022 [facility] Olecranon bursitis of left elbow Rotator cuff injury Hypertension Dyslipidemia H pylori ulcer BPH with urinary obstruction MARLIN on CPAP Sleep study 09/09/2015-[facility] 55.8 with SpO2 < 88% for 21% of the time Surgical History Surgical History H/O kidney removal History of nephrectomy, right Family History Family History Other Hypertension Social History Social History Social History: 01/03/24 very confident with medical forms Smoking packs per day: 2 Smoking cigarettes per day: 40.0 Years smoked: 30 Smoking pack-years: 60.00 Smoking status: Former smoker Tobacco type: cigarettes Alcohol intake: current Drinks per week: 21 Alcohol use details: HARD LIQUOR Substance use: never Substance use type: does not use Do You Feel Safe in your Home?: Yes Lack of Transportation: No Lack of Food: Never True Current Housing: I Have Housing Concerned About Future Housing: No Difficulty Paying Gas/Electric Bills: No Difficulty Paying for Meds: No Currently Unemployed: No Education: High School Diploma/GED Difficulty w/ Childcare or Family Care: No Living arrangements: alone Occupation/Education: retired Gender identity (if verbalized by the patient): Male Spiritual care concerns: No Anes - Eval Final PreProcedure Day of Procedure 06/30/24 08:05 Patient weight: overweight Lungs: normal air movement Airway: Mallampati scale class II and special considerations (Upper and lower dentures. ) Neurological: alert and oriented Last oral intake: >/= 8 hours ASA classification: III Emergent: no Anesthetic plan: proceed Anesthesia type and monitoring: general GIVS and standard monitoring Results Review: All pre-operative results and documents have been reviewed as part of the pre-operative evaluation. HTN, hyperlipidemia, MARLIN on CPAP, pt w AICD for prev apparent nonischemic CM, pt reports now nml. EGD for occ melena. Informed Consent: The patient's anesthetic plan and its attendant risks and benefits were discussed with the patient/family/POA. Questions were solicited and answers provided to the satisfaction of the patient/family/POA.
--- NOTE | 2024-06-30 08:06 | PM.HPGS ---
History of Present Illness History of Present Illness Consent: Risks, benefits, and alternatives have been discussed and questions answered. Patient agrees to proceed with procedure. Chief complaint: GERD/Melena Narrative: Sajan Norman is a 73 year old male with gerd on omeprazole, episode of dark stool many weeks ago. Had H pylori about 30 years ago Review of Systems Review of Systems: All systems reviewed & are unremarkable except as noted in HPI and below PMFSH Past Medical History Medical History (Updated 06/30/24 @ 08:07 by Sylvester Rg MD) GERD (gastroesophageal reflux disease) Vitamin D deficiency Renal cancer Right kidney, status post right nephrectomy Nonischemic cardiomyopathy EF 20% -ICD placed 07/13/2022 [facility] Olecranon bursitis of left elbow Rotator cuff injury Hypertension Dyslipidemia H pylori ulcer BPH with urinary obstruction MARLIN on CPAP Sleep study 09/09/2015-[facility] 55.8 with SpO2 < 88% for 21% of the time Surgical History Surgical History H/O kidney removal History of nephrectomy, right Family History Family History Other Hypertension Social History Social History Social History: 01/03/24 very confident with medical forms Smoking packs per day: 2 Smoking cigarettes per day: 40.0 Years smoked: 30 Smoking pack-years: 60.00 Smoking status: Former smoker Tobacco type: cigarettes Alcohol intake: current Drinks per week: 21 Alcohol use details: HARD LIQUOR Substance use: never Substance use type: does not use Do You Feel Safe in your Home?: Yes Lack of Transportation: No Lack of Food: Never True Current Housing: I Have Housing Concerned About Future Housing: No Difficulty Paying Gas/Electric Bills: No Difficulty Paying for Meds: No Currently Unemployed: No Education: High School Diploma/GED Difficulty w/ Childcare or Family Care: No Living arrangements: alone Occupation/Education: retired Gender identity (if verbalized by the patient): Male Spiritual care concerns: No Meds Home Medications and Allergies Home Medications ?Medication ?Instructions ?Recorded ?Confirmed ?Type tamsulosin 0.4 mg capsule 0.4 mg PO DAILY 12/20/21 06/30/24 History aspirin 81 mg tablet,delayed 81 mg PO DAILY 12/21/21 06/30/24 History release (Adult Aspirin Regimen) finasteride 5 mg tablet 5 mg PO DAILY 12/21/21 06/30/24 History xvxzekqngdzg-amf-htled acid-vit 1 tablet PO DAILY 01/31/22 06/30/24 History K-lycop 400 mcg-20 mcg-370 mcg tablet (One-A-Day Men's 50 Plus (with vitamin K)) furosemide 40 mg tablet 40 mg PO QAM 08/06/22 06/30/24 History hydralazine 50 mg tablet 50 mg PO BID 08/06/22 06/30/24 History metoprolol succinate 25 mg 25 mg PO DAILY 08/06/22 06/30/24 History tablet,extended release 24 hr atorvastatin 20 mg tablet 20 mg PO DAILY 03/20/23 06/30/24 History cholecalciferol (vitamin D3) 25 125 mcg PO DAILY 03/20/23 06/30/24 History mcg (1,000 unit) capsule irbesartan 300 mg tablet 300 mg PO DAILY 03/20/23 06/30/24 History cyanocobalamin (vitamin B-12) 1,000 mcg PO DAILY 03/09/24 06/30/24 History 1,000 mcg tablet ferrous sulfate 325 mg (65 mg 325 mg PO DAILY 03/09/24 06/30/24 History iron) tablet omeprazole 20 mg capsule,delayed 20 mg PO DAILY #90 caps 05/18/24 06/30/24 Rx release Allergies Allergy/AdvReac Type Severity Reaction Status Date / Time amlodipine AdvReac Intermediate Other Verified 06/30/24 07:08 latex tape AdvReac Intermediate Swelling Uncoded 06/30/24 07:08 Vital Signs Vital Signs - 24 hr 06/30/24 07:11 Temperature 97.1 F L Pulse Rate 66 Respiratory Rate 22 H Blood Pressure 162/92 H Pulse Oximetry 99 Oxygen Delivery Room Air Exam Const: General: comfortable and no acute distress HENMT: Face/Nose/Sinus: Normal nares present Eyes: General: appearance normal, both eyes and all related structures Neck: Neck: no JVD Resp: Auscultation: clear to auscultation bilaterally Cardio: Rate: regular rate Rhythm: regular rhythm GI: Inspection: non-distended GI Palp: Yes Soft to palpation Skin: General skin exam: normal color Neuro: Speech: normal speech Extrem: General: normal to inspection Psych: Mental Status: mental status grossly normal Assessment and Plan Assessment and plan (1) GERD (gastroesophageal reflux disease): Code(s): K21.9 - Gastro-esophageal reflux disease without esophagitis Status: Acute Assessment and Plan: egd with bx (2) H pylori ulcer: Code(s): K27.9 - Peptic ulcer, site unspecified, unspecified as acute or chronic, without hemorrhage or perforation; B96.81 - Helicobacter pylori [H. pylori] as the cause of diseases classified elsewhere Status: Acute
[2024-06-30 08:18] VITALS: BP 114/65; PULSE 68; RESP 21; O2SAT 99
[2024-06-30 08:28] VITALS: BP 136/83; PULSE 56; RESP 21; O2SAT 99
[2024-06-30 08:38] VITALS: BP 141/83; PULSE 57; RESP 20; O2SAT 99
== END 2024-06-30 08:45 | disposition home or self-care (01) ==
PROVIDERS: PCP Physician Assistant Medical; Visit Provider Internal Medicine Gastroenterology
PROC: 0DJ08ZZ Inspection of Upper Intestinal Tract, Via Natural or Artificial Opening Endoscopic (ICD-10-PCS; CPT 43239; principal; 2024-06-30 08:30)
DX: K21.00 Gastro-esophageal reflux disease with esophagitis, without bleeding (principal); K44.9 Diaphragmatic hernia without obstruction or gangrene; K31.89 Other diseases of stomach and duodenum; E78.5 Hyperlipidemia, unspecified; E55.9 Vitamin D deficiency, unspecified; I10 Essential (primary) hypertension; G47.33 Obstructive sleep apnea (adult) (pediatric); I42.8 Other cardiomyopathies; N40.1 Benign prostatic hyperplasia with lower urinary tract symptoms; Z79.82 Long term (current) use of aspirin; Z99.89 Dependence on other enabling machines and devices; Z98.890 Other specified postprocedural states; Z90.5 Acquired absence of kidney; Z87.891 Personal history of nicotine dependence; Z85.528 Personal history of other malignant neoplasm of kidney
CPT/HCPCS: 43239; 88305; J2003; J2704; J7120

== ENCOUNTER 2024-12-03 05:46 | Outpatient (CLI) | payer MEDICARE, SELFPAY ==
--- NOTE | 2024-12-03 06:45 | SUR.OPER ---
Patient brought to GI Lab. Instructions for patient undergoing Capsule Endoscopy reviewed with patient. Consent form signed. Sensor array applied to patient's abdomen and connected to recorded. Patient swallowed capsule with 2 cups of water infused with Simethicone. Patient instructed they may have clear liquids at 0830 this AM and eat or drink at 1030 this AM. Patient instructed to return to GI Lab at 1500 this afternoon for removal of recording device and to call [phone] or to return to the hospital if any nausea and vomiting or abdominal pain is experienced.
--- NOTE | 2024-12-03 14:40 | SUR.PREOP ---
Patient returned to the GI Lab at 1430 for recorder box removal. Patient voiced no complaints. States they have understanding of instructions. Patient left ambulatory.
== END 2024-12-03 05:47 | disposition home or self-care (01) ==
PROVIDERS: PCP Physician Assistant Medical; Referring Provider Nurse Practitioner; Visit Provider Internal Medicine Gastroenterology
PROC: 0DJ07ZZ Inspection of Upper Intestinal Tract, Via Natural or Artificial Opening (ICD-10-PCS; CPT 91110; principal; 2024-12-03 07:00)
DX: Z01.818 Encounter for other preprocedural examination (principal); R19.5 Other fecal abnormalities; D64.9 Anemia, unspecified
CPT/HCPCS: 91110

== ENCOUNTER 2024-12-29 00:32 | Day surgery (SDC) | payer MEDICARE, SELFPAY ==
[2024-12-14 14:21] VITALS: BMI 26.5
--- NOTE | 2024-12-16 10:42 | SUR.PREOP ---
Chart reviewed with Dr. Noyola. Pt is good to proceed with his procedures.
--- OUTSIDE RECORDS SUMMARY | 2024-12-28 13:43 | XMS_ITS | Encounter Summary ---
Author Organization [facility] Address [address] [place] [address] Care Team Providers Care Fish Hatchery Inspector Name Role Phone Ro Schafer Primary Care Provider [phone] Reason for Referral * Imaging (Routine) - Closed Specialty Diagnoses / Procedures Referred By Contac t Referred To Contact RADIOLOGY Diagnoses Syncope and collapse Procedures USV CAROTID DUPLEX Ro Rosado PA [facility] [place] [address] Phone: tel: fax: Referral ID Status Reason Start Date Expiration Date Visits Re quested Visits Authorized [id number] Closed 12/22/2024 12/22/2025 1 1 Reason for Visit * Imaging (Routine) - Closed Specialty Diagnoses / Procedures Referred By Bull sarmiento Referred To Contact RADIOLOGY Diagnoses Syncope and collapse Procedures USV CAROTID DUPLEX Ro Rosado PA [facility] [place] [address] Phone: tel: fax: Referral ID Status Reason Start Date Expiration Date Visits Re quested Visits Authorized [id number] Closed 12/22/2024 12/22/2025 1 1 Encounter Details Date Type Department Care Team (Late st Contact Info) Description 12/28/2024 1:43 PM CDT Hospital Encounter [facility] [address] [place], [place] [phone] Ro Schafer PA [facility] [place], [place] [phone] Arrived Social History Tobacco Use Types Packs/Day Years Used Date Smoking Tobacco: Former Cigarettes Q uit: 2006 Smokeless Tobacco: Never Alcohol Use Standard Drinks/Week Comments Yes 35 (1 standard drink = 0.6 oz pu re alcohol) per week Sex and Gender Information Value Date Recorded Sex Assigned at Male 10/23/2024 2:20 PM CDT Legal Sex Male 10:22 PM DRAW PRESS OPERATOR Gender Identity Male 10/23/2024 2:20 PM CDT Sexual Orientation Not on file documented as of this encounter Plan of Treatment Upcoming Encounters Date Type Department Care Team (Late st Contact Info) Description 01/25/2025 11:10 AM CDT Allied Health/Nurse Visit [facility], [facility] [address] [place] [address] Roger Sims MD [facility]. [facility] [address] [place] [address] 02/09/2025 8:40 AM DRAW PRESS OPERATOR Office Visit [facility] - [address] [phone] Mahin Aguirre MD [address] [place] [address] [address] [place] [address] 03/19/2025 10:45 AM DRAW PRESS OPERATOR [facility] [address] [place] [address] Jordan Peter MD [facility]. [address] [address] [place] [address] Emmie Crane PA 3 [facility], [address] [place] [address] 04/07/2025 10:00 AM DRAW PRESS OPERATOR Office Visit [facility] [address] [place] [address] Gela Ricci, [employer] 3 [facility], [address] [address] Pending Results Name Type Priority Associated Diagnoses Date /Time USV CAROTID DUPLEX PRIYA US VASC Routine Syncope and collapse 12/28/2024 2:24 PM CDT Scheduled Orders Name Type Priority Associated Diagnoses Orde r Schedule USV CAROTID DUPLEX PRIYA US VASC Routine Syncope and collapse Once for 1 Occurrences starting 12/28/2024 until 12/28/2024 documented as of this encounter Visit Diagnoses Diagnosis Syncope and collapse documented in this encounter Care Teams Fish Hatchery Inspector Relationship Specialty Start Date End Date Ro Schafer PA [address] [place] [address] PCP - General PHYSICIAN CHEESE WRAPPER 12/06/21 documented as of this encounter
--- OUTSIDE RECORDS SUMMARY | 2024-12-29 00:35 | XMS_ITS | Encounter Summary ---
Author Organization [facility] Address [address] [place] [address] Care Team Providers Care Mill Feeder Name Role Phone Victor Manuel Grayson MD Primary Care Provider [phone] Ro Schafer Primary Care Provider [phone] Encounter Details Date Type Department Care Team (Late st Contact Info) Description 08/23/2021 [facility] [address] [phone] Claudy Casey MA Social History Tobacco Use Types Packs/Day Years Used Date Smoking Tobacco: Former Cigarettes Q uit: 2006 Smokeless Tobacco: Never Alcohol Use Standard Drinks/Week Comments Yes 33.3 (1 standard drink = 0.6 oz pure alcohol) Sex and Gender Information Value Date Recorded Sex Assigned at Male 10/23/2024 2:20 PM CDT Legal Sex Male 10:22 PM CORPORATE COUNSELOR Gender Identity Male 10/23/2024 2:20 PM CDT Sexual Orientation Not on file COVID-19 Exposure [...] 01/25/2025 11:10 AM CDT Allied Health/Nurse Visit [facility] [facility], [facility] [address] [place], [place] [phone] Roger Sims MD [facility]. [facility] [address] [place] [address] 02/09/2025 8:40 AM CORPORATE COUNSELOR Office Visit [facility] [place] [address] [place] [phone] Mahin Aguirre MD 3rd [facility] [address] [place] [address] 03/19/2025 10:45 AM CORPORATE COUNSELOR Office Visit [facility] [address] [place] [phone] Jordan Peter MD Three [facility]. [facility] [address] [place] [address] Emmie Crane PA 3 [facility], [address] [place] [address] 04/07/2025 10:00 AM CORPORATE COUNSELOR Office Visit [facility] [address] [place] [phone] Gela Ricci, INSTRUCTOR BRIDGE 3 [facility], [facility] [address] [place] [address] documented as of this encounter Procedures Procedure Name Priority Date/Time Associated Diagnosis Comments CBC (OUTSIDE LAB) Routine 12/20/2020 COMPREHENSIVE METABOLIC PANEL Routine 12/20/2020 LIPID PANEL Routine 12/20/2020 THYROID STIM HORMONE TSH Routine 12/20/2020 documented in this encounter Results * CBC (OUTSIDE LAB) (12/20/2020) Pathologist [facility] WBC 4.9 HGB 14.6 HCT 44.6 PLT [...] LABORATORY Final Result * LIPID PANEL (12/20/2020) Pathologist [facility] CHOLESTEROL 212 HDL 81 TRIGLYCERIDES 274 NON HDL CHOLESTEROL 131 LDL (CALCULATED) 92 12/20/2020 us Doc [facility] Abstract LABORATORY Edited Resul t - Final documented in this encounter Visit Diagnoses Not on filedocumented in this encounter Additional Health Concerns Infection Onset Date Last Indicated Resolved Time COVID-19 Rule Out 03/12/2022 03/12/2022 03/12/2022 11:12 AM CORPORATE COUNSELOR documented as of this encounter Care Teams Mill Feeder Relationship Specialty Start Date End Date Victor Manuel Grayson MD [address] [place] [address] PCP - General INTERNAL MEDICINE 04/20/19 12/05/21 Ro Schafer PA [address] [place] [address] PCP - General PHYSICIAN IMAGING SERVICES DIRECTOR 12/06/21 documented as of this encounter
--- OUTSIDE RECORDS SUMMARY | 2024-12-29 00:35 | XMS_ITS | Encounter Summary ---
Author Organization [facility] Address [address] [place] [address] Care Team Providers Care Chemical Pumper Name Role Phone Ro Schafer Primary Care Provider [phone] Encounter Details Date Type Department Care Team (Late st Contact Info) Description 04/09/2022 Hospital Orders Only [facility], [facility] [address] [place], [place] [phone] Jordan Peter MD Three [facility]. [facility] [address] [place], [place] [phone] Social History Tobacco Use Types Packs/Day Years Used Date Smoking Tobacco: Former Cigarettes Q uit: 2006 Smokeless Tobacco: Never Alcohol Use Standard Drinks/Week Comments Yes 46.7 (1 standard drink = 0.6 oz pure alcohol) per week Sex and Gender Information Value Date Recorded Sex Assigned at Male 10/23/2024 2:20 PM CDT Legal Sex Male 10:22 PM TIMBER DEADENER Gender Identity Male 10/23/2024 2:20 PM CDT Sexual Orientation Not on file COVID-19 Exposure Response Date Recorded In the last 10 days, have yo u been in contact with someone who was confirmed or suspected to have Coronavirus/COVID-19? No / Unsure 04/10/2022 10:56 AM TIMBER DEADENER documented as of this encounter Functional Status * Calculated C-SSRS Risk Score (Lifetime/Recent) Answer Date of Assessment Author Status No Risk Indicated 04/10/2022 11:37 AM TIMBER DEADENER Sandi Ortiz RN Active * [place] Suicide Severity Rating Scale (Screener/Recent Self-Report) Question Answer Date of Assessment Author Status 1. Wish to be (Past 1 Month) No 04/10/2022 11:37 AM TIMBER DEADENER Sandi Ortiz RN Activ e 2. Non-Specific Active Suicidal Thoughts (Past 1 Month) No 04/10/2022 11:37 AM Sandi Sarabia RN Activ e 6. Suicidal Behavior (Lifetime) No 04/10/2022 11:37 AM Sandi Sarabia RN Activ e documented as of this encounter Plan of Treatment Upcoming Encounters Date Type Department Care Team (Late st Contact Info) Description 01/25/2025 11:10 AM CDT [facility], [facility] [address] [place] [address] Roger Sims MD [facility]. [facility] [address] [place] [address] 02/09/2025 8:40 AM TIMBER DEADENER Office Visit [facility] Pulmonology Specialty [address] [phone] Mahin Aguirre MD [address] [place] [address] [address] [place] [address] 03/19/2025 10:45 AM TIMBER DEADENER Office Visit [facility] [address] [place] [phone] Jordan Peter MD [facility]. [facility] [address] [place], [place] [address] Emmie Crane PA 3 [facility], [address] [place] [address] 04/07/2025 10:00 AM TIMBER DEADENER Office Visit [facility] [address] [place] [phone] Gela Ricci M, LAST REMODELER REPAIRER 3 [facility], [address] [address] documented as of this encounter Visit Diagnoses Not on filedocumented in this encounter Care Teams Chemical Pumper Relationship Specialty Start Date End Date Ro Schafer PA [address] [place] [address] PCP - General PHYSICIAN EVS TECH 12/06/21 documented as of this encounter
--- OUTSIDE RECORDS SUMMARY | 2024-12-29 00:35 | XMS_ITS | Clinical Summary ---
Author Organization [facility] Address [facility] [place] [address] Care Team Providers Care Internet Architect Name Role Phone Ro Schafer Primary Care Provider [phone] Allergies Active Allergy Reactions Criticality Noted Date Comments Amlodipine Other (see comment) High 07/13/2024 leg edema Latex Contact Dermatitis High 07/26/2014 Medications Multiple Vitamin (MULTIVITAMIN) capsule Take 1 capsule by mouth daily. 7 Active tamsulosin 0.4 MG Cap TK 1 C PO HS 0 Active finasteride 5 MG tablet Take 1 tablet (5 mg total) by mouth daily. 2 Active omeprazole 20 MG capsule Take 1 capsule (20 mg total) by mouth daily. 2 Active aspirin EC (ECOTRIN) 81 MG tablet Take 1 tablet (81 mg total) by mouth daily. Active cholecalcifero l (VITAMIN D3) 125 MCG (5000 UT) Tab Take 1 tablet (5,000 Units total) by mouth daily. Active furosemide (LASIX) 40 MG tablet Take 1 tablet (40 mg total) by mouth daily. 90 tablet 2 5 Active potassium chloride CR (K-TAB) 20 MEQ tablet Take 1 tablet (20 mEq total) by mouth every other day. That is every other day 60 tablet 5 Active metoprolol succinate ER (TOPROL-XL) 50 MG 24 hr tablet Take 1 tablet (50 mg total) by mouth 2 (two) times a day. New dose 180 tablet 1 5 Active irbesartan (AVAPRO) 150 MG tablet Take 1 tablet (150 mg total) by mouth daily. 90 tablet 1 5 Active Additional Information Patient taking differently: 75 mgOral Daily, Reported on 10/23/2024 atorvastatin (LIPITOR) 20 MG tablet TAKE 1 TABLET(20 MG) BY MOUTH EVERY NIGHT AT BEDTIME 90 tablet 2 5 Active empagliflozin (JARDIANCE) 10 MG tablet Take 1 tablet (10 mg total) by mouth daily. 30 tablet 4 5 Active spironolactone (ALDACTONE) 25 MG tablet Take 0.5 tablets (12.5 mg total) by mouth daily. 45 tablet 3 5 12/19/19 25 Discontin ued(Alter adrienne therapy) eplerenone (INSPRA) 25 MG tablet Take 1 tablet (25 mg total) by mouth daily. 30 tablet 5 5 12/19/19 25 Discontin ued(Alter adrienne therapy) Active Problems Problem Noted Date Diagnosed Date AICD (automatic cardioverter/defibrillator) pres ent 07/13/2022 Overview (07/26/2022): [employer] Vigilant VVI/ICD implanted 07/13/2022 for NICM Assessment & Plan (02/08/2023 7:52 AM WET WASH ASSEMBLER): Dual-chamber ICD implanted on July 13, 2022 for primary prevention Followed by EP Assessment & Plan (08/03/2022 10:20 AM CDT): He is status post primary prevention ICD. Continue to follow with device clinic. Non-ischemic cardiomyopathy ([facility]) Assessment & Plan (03/06/2024 10:47 AM WET WASH ASSEMBLER): He is s/p single-chamber ICD for primary [...] visit. Assessment & Plan (02/12/2023 9:54 AM WET WASH ASSEMBLER): Left heart cath completed in April 2022 [...] class I-II Chronic systolic HF (heart failure) ([facility] /[facility]) 07/06/2022 Assessment & Plan (09/11/2024 2:14 PM CDT): cardiac MRI was completed in 2022 which revealed dilation of the left and right ventricles compatible with dilated cardiomyopathy moderate aortic regurgitation and mild pulmonic regurgitation. Ejection fraction 20%. S/p single-chamber ICD for primary prevention. Patient appears euvolemic on exam today. Continue medical management with irbesartan, metoprolol, Lasix. Recommended adding on spironolactone 25 mg daily. Will repeat BMP in 1 week. Assessment & Plan (08/03/2022 10:19 AM CDT): [...] 03/27/2022 Assessment & Plan (02/08/2023 7:53 AM WET WASH ASSEMBLER): CPAP compliance encouraged Assessment & Plan (03/27/2022 1:26 PM WET WASH ASSEMBLER): Compliant with CPAP Followed by primary SOB (shortness of breath) 03/16/2022 Assessment & Plan (03/16/2022 11:55 AM WET WASH ASSEMBLER): With some congestive findings on CTA chest Echo ordered - I will try to have this moved up This could be anginal equivalent Although, I do hear a murmur left sternal border - I will hold on ischemic eval for now until echo is performed Elevated troponin 03/16/2022 Assessment & Plan (03/16/2022 11:52 AM WET WASH ASSEMBLER): Mild elevation Will wait on echo for [...] block. Benign essential hypertension Assessment & Plan (09/11/2024 2:11 PM CDT): Blood pressure is well-controlled in office today. Continue irbesartan, metoprolol, Lasix. Adding on spironolactone for further heart failure management. Continue to monitor blood pressures at home. Assessment & Plan (03/06/2024 10:40 AM WET WASH ASSEMBLER): Blood pressure is well-controlled in office today. Continue irbesartan, hydralazine, Lasix. Assessment & Plan (02/12/2023 9:55 AM WET WASH ASSEMBLER): Well-controlled on current regimen and continued on irbesartan 300 mg a day, metoprolol 25 mg daily, hydralazine 50 mg twice a day. Assessment & Plan (08/03/2022 10:19 AM CDT): Continue antihypertensive therapy. Assessment & Plan (07/06/2022 5:30 AM CDT): Continue antihypertensive therapy. Assessment & Plan (03/16/2022 11:53 AM WET WASH ASSEMBLER): Starting hydralazine 50mg BID Assessment & Plan (08/18/2021 1:46 PM CDT): His blood pressure was elevated in the office. I recommended that he check his blood pressure at home 2 hours after taking his medication. He should continue irbesartan. Dyslipidemia Assessment & Plan (09/11/2024 2:12 PM CDT): Last lipid panel controlled. Continue atorvastatin. Assessment & Plan (03/06/2024 10:47 AM WET WASH ASSEMBLER): Patient brought in lab results that show LDL of 82. Continue atorvastatin. Assessment & Plan (02/08/2023 7:53 AM WET WASH ASSEMBLER): Lipid panel reviewed from March 2022 with [...] atorvastatin. Assessment & Plan (03/16/2022 11:54 AM WET WASH ASSEMBLER): With noted atherosclerosis on CTA Increasing atorva [...] Encounters Date Type Department Care Team Description 12/28/2024 1:43 PM CDT Hospital Encounter [facility] Ultrasound [address] [place] [address] Ro Schafer PA Arrived 12/28/2024 Travel 12/17/2024 Telephone [facility], [place] [address] [place] [address] Jordan Peter MD Advise 11/13/2024 Telephone [facility], [place] [address] [place] [address] Jordan Peter MD Surgical Clearance 10/26/2024 11:10 AM CDT Allied Health/Nurse Visit [facility], [address] [address] Jerome Wills MD Remote Device Check 10/23/2024 2:02 PM CDT - 10/23/2024 6:59 PM CDT Emergency [facility] Emergency Room [address] [place] [address] Denise Cameron MD Fall; Syncope Discharge Disposition: Home or Self Care (Routine Discharge) 10/23/2024 Travel 10/23/2024 Telephone [facility], [address] [address] Emmie Crane PA Advise 10/14/2024 Telephone [facility], [address] [address] Emmie Crane PA Advise 09/30/2024 1:28 PM CDT - 09/30/2024 11:59 PM CDT Hospital Encounter [facility] Laboratory [address] [place] [address] Jerome Wills MD Discharge Disposition: Home or Self Care (Routine Discharge) 09/30/2024 12:30 PM CDT Office Visit [facility] [address] [phone] Jerome Wills MD Follow Up (NIC); CHF 09/30/2024 Results Follow-Up [facility] [address] [place] [phone] Sara Mackay RN COMPREHENSIVE METABOLIC PANEL, MAGNESIUM 09/30/2024 Travel from Last 3 Months Immunizations Immunization Administration Dates Next Due Afluria 36 MONTHS+ (Prefilled Syringe IIV4) 12/31 Influenza (Generic) 12/21/2019,01/30/2019 Influenza Adult (Generic) 01/26/2019 PFIZER COVID-19 (ORIGINAL FO RMULATION, PURPLE CAP) mRNA, LNP-S, PF, 30 MCG/0.3 ML DOSE 01/11/2021,06/14/2020,05/24/2020 PFIZER COVID-19 BIVALENT (12 +) mRNA, LNP-S, PF, 30 MCG/0.3 ML DOSE 01/10/2022 Pneumococcal (Pneumovax 23) 08/22/2018 Pneumococcal (Prevnar 13) 07/13/2015 Tdap (Generic) 10/12/2010 Zoster (Zostavax) [address] Unt/0.65Ml 08/08/2016,,10/12/2010 Family History Relation Status Comments Father Mother Social History Tobacco Use Types Packs/Day Years Used Date Smoking Tobacco: Former Cigarettes Q uit: 2006 Smokeless Tobacco: Never Tobacco Cessation:Counseling Given: Not Answered Alcohol Use Standard Drinks/Week Comments Yes 35 (1 standard drink = 0.6 oz pu re alcohol) per week Sex and Gender Information Value Date Recorded Sex Assigned at Male 10/23/2024 2:20 PM CDT Legal Sex Male 10:22 PM WET WASH ASSEMBLER Gender Identity Male 10/23/2024 2:20 PM CDT Sexual Orientation Not on file Last Filed Vital Signs Vital Sign Reading Time Taken Comments Blood Pressure 131/79 10/23/2024 6:00 PM CDT Pulse 80 10/23/2024 6:00 PM CDT Temperature 36.8 C (98.3 F) 10/23/2024 6:00 PM CDT Respiratory Rate 19 10/23/2024 6:00 PM CDT Oxygen Saturation 97% 10/23/2024 6:00 PM CDT Inhaled Oxygen Concentration - - Weight 83.9 kg (185 lb) 10/23/2024 2:09 PM CDT Height 180.3 cm (5' 11) 10/23/2024 2:09 PM CDT Body Mass Index 25.8 10/23/2024 2:09 PM CDT Plan of Treatment Upcoming Encounters Date Type Department Care Team (Late st Contact Info) Description 01/25/2025 11:10 AM CDT Allied Health/Nurse [facility], [address] [place] [address] Roger Sims MD [facility]. [address] [place], [place] [address] 02/09/2025 8:40 AM WET WASH ASSEMBLER Office Visit [facility] - [address] [phone] Mahin Aguirre MD [address] [place] [address] [address] [place], [place] [address] 03/19/2025 10:45 AM WET WASH ASSEMBLER Office Visit [facility] [address] [place] [phone] Jordan Peter MD [facility]. [facility] [address] [place] [address] Emmie Crane PA [address] [facility], [address] [place], [place] [address] 04/07/2025 10:00 AM WET WASH ASSEMBLER Office Visit [facility] [address] [phone] Gela Ricci, PRODUCT RESPONSIBILITY LIAISON [address] [facility], [address] [address] Health Maintenance Due Date Last Done Comments Colorectal Cancer Screening Colonoscopy (10 Years) 1950 Hepatitis C 1968 RSV Immunization or 60+ Years (1 - Risk 60-74 years 1-dose series) 2010 Annual Medicare Wellness Visit 07/06/2015 Zoster Vaccines (2 of 3) 10/03/2016 017, 07/27/2015, 10/12/2010 DTaP, Tdap and Td Vaccines (2 - Td or Tdap) 10/12/2020 10/12/2010 COVID-19 Vaccine ( season) 2024 01/10/2022, 01/11/2021, 06/14/2020, Additional history exists Pneumococcal Vaccine: 50+ Years Completed 08/22/2018, 07/13/2015 AAA SCREENING Completed 03/12/2022 Meningococcal B Vaccine Aged Out No l onger eligible based on patient's age to complete this topic Meningococcal Vaccine Aged Out No myriam josiane eligible based on patient's age to complete this topic RSV Immunizations Under 20 Months Aged Out No longer eligible based on patient's age to complete this topic Medical Devices Implanted Type Area Vp Packaging Device Identifier Shelf Expiration Date Model / Serial / Lot Bs Icd-07/13/2022 Implanted:Qty : 1 on 07/13/2022 by Jerome Wills MD ICD Left: Chest [employer] [id number] 10/12/2023 [id number] / [id number] / Rv Lead Implant-2022 Implanted:Qty : 1 on 07/13/2022 by Jerome Wills MD Lead Implant [employer] [id number] 01/12/2024 [id number] / [id number] / Procedures Procedure Name Priority Date/Time Associated Diagnosis Comments XR CHEST PORTABLE STAT 10/23/2024 2:4 5 PM CDT ECG 12-LEAD Routine 10/23/2024 2:38 PM CDT MAGNESIUM STAT 10/23/2024 2:25 PM CDT CBC W/DIFF AUTOMATED STAT 10/23/2024 2:25 PM CDT COMPREHENSIVE METABOLIC PANEL STAT 10/23/2024 2:25 PM CDT MAGNESIUM Routine 09/30/2024 1:56 PM CDT NICM (nonischemic cardiomyopathy) (CMS/HCC HHS/HCC) COMPREHENSIVE METABOLIC PANEL Routine 09/30/2024 1:56 PM CDT NICM (nonischemic cardiomyopathy) (CMS/HCC HHS/HCC) ELECTROCARDIOGRAM (NON MIDMARK ACQUIRED) Routine 09/30/2024 12:36 PM CDT NICM (nonischemic cardiomyopathy) (CMS/HCC HHS/HCC) CTA CHEST STAT 03/12/2022 12:15 PM WET WASH ASSEMBLER from Last 3 Months or Most Recently Relevant to Health Maintenance Results * XR CHEST PORTABLE (10/23/2024 2:45 PM CDT) Anatomical Region Laterality Modality Chest Radiographic Anna ging 10/23/2024 2:46 PM CDT Impressions 10/23/2024 3:03 PM CDT IMPRESSION: 1) No radiographic evidence of active disease the chest. Ordered By: DENISE CAMERON Interpreted By: Elliott Salinas MD, 10/23/2024 2:46 PM Narrative 10/23/2024 3:03 PM CDT [facility] [address] [place] [address] Examination: XR CHEST PORTABLE Exam time: 10/23/2024 2:37 PM Clinical history: Syncope Comparison: 09/21/2024 Technique: AP chest Findings: Borderline heart size similar to previous study. Left subclavian transvenous ICD lead placement unchanged. Pulmonary vasculature unremarkable. No focal pulmonary parenchymal opacity. No pleural effusion. No hyperinflation. Procedure Note Elliott Salinas MD - 10/23/2024 [facility] [address] [place] [address] Examination: XR CHEST PORTABLE Exam time: 10/23/2024 2:37 PM Clinical history: Syncope Comparison: 09/21/2024 Technique: AP chest Findings: Borderline heart size similar to previous study. Left subclaviantransvenous ICD lead placement unchanged. Pulmonary vasculatureunremarkable. No focal pulmonary parenchymal opacity. No pleural effusion.No hyperinflation. IMPRESSION: 1) No radiographic evidence of active disease the chest. Ordered By: DENISE CAMERON Interpreted By: Elliott Salinas MD, 10/23/2024 2:46 PM Denise Cameron MD GENERAL IMAGING Final Result * ECG 12 lead (10/23/2024 2:38 PM CDT) 10/23/2024 2:38 PM CDT Narrative [facility] RAD - 10/28/2024 3:01 AM CDT [facility] Test Date: 2024-10-23 Pat Name: SAJAN ARRIOLA Department: 85 Room: [place] [address] Gender: Male Cleat Blanker: : 1950 Requested By: DENISE CAMERON Order Number: [id number] Reading MD: Selvin Julien Measurements Intervals [place] Rate: 91 P: 52 DC: 216 QRS: -38 QRSD: 103 T: 70 QT: 338 QTc: 417 Interpretive Statements SINUS RHYTHM WITH FIRST DEGREE AV BLOCK WITH FREQUENT VENTRICULAR PREMATURE COMPLEXES LEFT AXIS DEVIATION [QRS AXIS < -30] LOW QRS VOLTAGE IN PRECORDIAL LEADS [QRS DEFLECTION < 1.0 mV IN CHEST LEADS] NONSPECIFIC T-WAVE ABNORMALITY Compared to ECG 09/30/2024 12:36:16 Ventricular premature complex(es) now present First degree AV block now present T-wave abnormality now present Myocardial infarct finding no longer present Procedure Note Selvin Julien MD - 10/28/2024 [facility] Test Date: 2024-10-23 Pat Name: SAJAN ARRIOLA Department: 85 Room: [place] [address] Gender: Male Cleat Blanker: : 1950 Requested By: DENISE CAMERON Order Number: [id number] Reading MD: Selvin Julien Measurements Intervals [place] Rate: 91 P: 52 DC: 216 QRS: -38 QRSD: 103 T: 70 QT: 338 QTc: 417 Interpretive Statements SINUS RHYTHM WITH FIRST DEGREE AV BLOCK WITH FREQUENT VENTRICULARPREMATURE COMPLEXES LEFT AXIS DEVIATION [QRS AXIS < -30] LOW QRS VOLTAGE IN PRECORDIAL LEADS [QRS DEFLECTION < 1.0 mV IN CHESTLEADS] NONSPECIFIC T-WAVE ABNORMALITY Compared to ECG 09/30/2024 12:36:16 Ventricular premature complex(es) now present First degree AV block now present T-wave abnormality now present Myocardial infarct finding no longer present us Denise Cameron MD ECG ORDERABLES Final Result [facility] RAD * (ABNORMAL) COMPREHENSIVE METABOLIC PANEL (10/23/2024 2:25 PM CDT) Only the most recent of2 resultswithin the time period is included. GLUCOSE 118(H) 70 - 99 MG/DL 10/23/2024 3:13 PM CDT [facility] BUN 42(H) 7 - 18 MG/DL 10/23/2024 3:13 PM CDT [facility] CREATININE S/P/B 1.67(H) 0.7 - 1.3 MG/DL 10/23/2024 3:13 PM CDT [facility] SODIUM S/P/B 138 136 - 145 MMOL/L 10/23/2024 3:13 PM CDT [facility] POTASSIUM S/P/B 4.3 3.5 - 5.1 MMOL/L 10/23/2024 3:13 PM T [facility] CHLORIDE S/P/B 105 100 - 108 MMOL/L 10/23/2024 3:13 PM [facility] CO2 22.1 21 - 32 MMOL/L 10/23/2024 3:13 PM T [facility] CALCIUM S/P/B 8.4(L) 8.5 - 10.1 MG/DL 10/23/2024 3:13 PM T [facility] BILIRUBIN TOTAL S/P/B 0.6 0.2 - 1.2 MG/DL 10/23/2024 3:13 PM [facility] TOTAL PROTEIN S/P/B 6.7 6.4 - 8.2 G/DL 10/23/2024 3:13 PM [facility] ALBUMIN S/P/B 3.7 3.4 - 5.0 G/DL 10/23/2024 3:13 PM [facility] AST 31 15 - 37 U/L 10/23/2024 3:13 PM [facility] ALT 65(H) 16 - 60 U/L 10/23/2024 3:13 PM [facility] ALKALINE PHOSPHATASE S/P/B 42(L) 50 - 136 U/L 10/23/2024 3:13 PM [facility] ANION GAP 10.9 5 - 15 MMOL/L 10/23/2024 3:13 PM [facility] BUN CREATININE RATIO 25.1 6 - 26 10/23/2024 3:13 PM [facility] A/G RATIO 1.2 1.0 - 2.0 RATIO 10/23/2024 3:13 PM [facility] GFR ESTIMATE 43(L) >90 ML/MIN/1.7 3 M2 10/23/2024 3:13 PM CDT [facility] Comment: NOTE: eGFR is not calculated for patients <18 years of age. This is an estimated GFR calculation using the new CKD EPI creatinine equation without race and so does not require a correction factor for race. This estimated GFR should not be used for calculating drug doses. 10/23/2024 2:25 PM CDT us Denise Cameron MD LABORATORY Final Result [facility] [address] [place] [phone], * (ABNORMAL) CBC W/DIFF AUTOMATED (10/23/2024 2:25 PM CDT) WBC 7.69 4.4 - 11.0 x10'3/uL 10/23/2024 2:39 PM CDT [facility] RBC 3.42(L) 4.50 - 5.90 x10'6/uL 10/23/2024 2:39 PM CDT [facility] HGB 11.6(L) 14.0 - 17.5 G/DL 10/23/2024 2:39 PM CDT [facility] HCT 33.7(L) 41.5 - 50.4 % 10/23/2024 2:39 PM CDT [facility] MCV 98.5(H) 80.0 - 96.0 FL 10/23/2024 2:39 PM CDT [facility] MCH 33.9(H) 26.5 - 31.4 PG 10/23/2024 2:39 PM CDT [facility] MCHC 34.4 31.9 - 34.8 G/DL 10/23/2024 2:39 PM CDT [facility] RDW 12.5 12.3 - 14.3 % 10/23/2024 2:39 PM CDT [facility] PLT 164 151 - 353 x10'3/uL 10/23/2024 2:39 PM T [facility] MPV 10.0 9.7 - 11.9 FL 10/23/2024 2:39 PM CDT [facility] RBC MORPHOLOGY NORMAL 10/23/2024 2:39 PM T [facility] PLT MORPH. NORMAL 10/23/2024 2:39 PM CDT [facility] WBC MORPHOLOGY NORMAL 10/23/2024 2:39 PM T [facility] LYMPHOCYTES % 21.8 15.8 - 45.0 % 10/23/2024 2:39 PM CDT [facility] NEUTROPHILS % 68.0 42.1 - 71.9 % 10/23/2024 2:39 PM CDT [facility] MONOCYTES % 8.5 5.7 - 12.5 % 10/23/2024 2:39 PM T [facility] EOSINOPHILS 1.0 0.0 - 5.6 % 10/23/2024 2:39 PM T [facility] BASOPHILS 0.4 0.0 - 1.3 % 10/23/2024 2:39 PM CDT [facility] ABS. NEUTROPHILS 5.23 1.40 - 6.00 x10'3/uL 10/23/2024 2:39 PM CDT [facility] IMMATURE GRANS % 0.3 0.0 - 0.5 % 10/23/2024 2:39 PM CDT [facility] ABS. LYMPHOCYTES 1.68 0.80 - 4.70 x10'3/uL 10/23/2024 2:39 PM CDT [facility] 10/23/2024 2:25 PM CDT Denise Cameron MD LABORATORY Final Result Performing Organization Address [facility] Co de Phone Number [facility] [address] [place] [address], [place] [phone] * (ABNORMAL) MAGNESIUM (10/23/2024 2:25 PM CDT) Only the most recent of2 resultswithin the time period is included. MAGNESIUM 1.0(L) 1.8 - 2.4 MG/DL 10/23/2024 3:13 PM CDT [facility] 10/23/2024 2:25 PM CDT Denise Cameron MD LABORATORY Final Result Performing Organization Address [facility] de Phone Number [facility] [address] [place] [address], [place] [phone] * ELECTROCARDIOGRAM (09/30/2024 12:36 PM CDT) 09/30/2024 12:3 6 PM CDT [facility] - 10/05/2024 8:30 AM CDT [facility] Test Date: 2024-09-30 Pat Name: SAJAN ARRIOLA Department: 108 Room: Gender: Male Cleat Blanker: : 1950 Requested By: JEROME WILLS Order Number: [id number] Reading MD: Jerome Wills Measurements Intervals [place] Rate: 87 P: 63 DC: 198 QRS: -32 QRSD: 105 T: -29 QT: 337 QTc: 407 Interpretive Statements SINUS RHYTHM LEFT AXIS DEVIATION LOW QRS VOLTAGE IN PRECORDIAL LEADS POSSIBLE ANTERIOR MYOCARDIAL INFARCTION, OF INDETERMINATE AGE Compared to ECG dated 09/21/24, no PVCs seen. Procedure Note Jerome Wills MD - 10/05/2024 [facility] Test Date: 2024-09-30 Pat Name: SAJAN ARRIOLA Department: 108 Room: Gender: Male Cleat Blanker: : 1950 Requested By: JEROME WILLS Order Number: [id number] Reading MD: Jerome Wills Measurements Intervals [place] Rate: 87 P: 63 DC: 198 QRS: -32 QRSD: 105 T: -29 QT: 337 QTc: 407 Interpretive Statements SINUS RHYTHM LEFT AXIS DEVIATION LOW QRS VOLTAGE IN PRECORDIAL LEADS POSSIBLE ANTERIOR MYOCARDIAL INFARCTION, OF INDETERMINATE AGE Compared to ECG dated 09/21/24, no PVCs seen. Jerome Wills MD PROCEDURES-ORDERABLE NO CHARGE F inal Result [facility] * CTA CHEST (03/12/2022 12:15 PM WET WASH ASSEMBLER) Anatomical Region Laterality Modality Chest Computed Tomogra phy 03/12/2022 1:14 PM WET WASH ASSEMBLER Impressions 03/12/2022 1:21 PM WET WASH ASSEMBLER IMPRESSION: 1. There is no acute pulmonary [...] right pleural effusion. 5. Cardiomegaly. Ordered By: BARBARA MCINTOSH Interpreted By: Ligia Medrano MD, 03/12/2022 1:14 PM Narrative 03/12/2022 1:21 PM WET WASH ASSEMBLER PROCEDURE: CTA CHEST. HISTORY: Evaluate for pulmonary [...] right pleural effusion. 5. Cardiomegaly. Ordered By: BARBARA MCINTOSH Interpreted By: Ligia Medrano MD, 03/12/2022 1:14 PM us Barbara Mcintosh [employer]CTOR CT Final Re sult from Last 3 Months or Most Recently Relevant to Health Maintenance Insurance [facility] Advance Directives * Full Code (Latest Code Status on File) Date Activated Date Inactivated Comments 04/10/2022 4:58 PM 04/10/2022 7:42 PM Care Teams Internet Architect Relationship Specialty Start Date End Date Ro Schafer PA [address] [place] [address] PCP - General PHYSICIAN PAD MACHINE OPERATOR 12/06/21
--- OUTSIDE RECORDS SUMMARY | 2024-12-29 00:35 | XMS_ITS | Clinical Summary ---
Author Organization [facility] Address [address] [place] [address] Care Team Providers Care White Shoe Ragger Name Role Phone Yusuf Acevedo MD Unavailable [phone] Ro Schafer Primary Care Provider [phone] Allergies Active Allergy Reactions Criticality Noted Date [...] Comments Blood Pressure 168/120 04/21/2020 10:14 AM CORK SLABS SAWYER RN informed Pulse 86 04/21/2020 10:14 AM CORK SLABS SAWYER Temperature 36.8 C (98.2 F) 04/21/2020 10:14 AM CORK SLABS SAWYER Respiratory Rate 18 04/21/2020 10:14 AM CORK SLABS SAWYER Oxygen Saturation 97% 04/21/2020 10:14 AM CORK SLABS SAWYER Inhaled Oxygen Concentration - - Weight 93 kg (205 lb) 05/31/2022 12:25 PM CORK SLABS SAWYER Height 180.3 cm (5' 11) 05/31/2022 12:25 PM CORK SLABS SAWYER Body Mass Index 28.59 05/31/2022 12:25 PM CORK SLABS SAWYER Plan of Treatment Health Maintenance Due Date [...] 3) 10/03/2016 08/08/2016, 07/26 Influenza Vaccine (#1) 2024 0, 01/30/2019, 01/26/2019 Insurance MEDICARE ADVANTAGE MEDICARE ADVANTAGE Care Teams White Shoe Ragger Relationship Specialty Start Date End Date Ro Schafer PA [address] [place] [id number] PCP - General Physician Biometrician 05/29/22 Yusuf Acevedo MD Medical Oncologist/Records Technician Hematology and Oncology 04/13/20
--- OUTSIDE RECORDS SUMMARY | 2024-12-29 00:35 | XMS_ITS | Encounter Summary ---
Author Organization [facility] Address [address] [place] [address] Care Team Providers Care Senior Engineering Associate Name Role Phone Gilmar Ro CANTU Primary Care Provider Encounter Details Date Type Department Care Team (Latest Contact Info) Description 12/28/2024 Travel Social History Tobacco Use Types Packs/Day Years Used Date Smoking Tobacco: Former Cigarettes Q uit: 2006 Smokeless Tobacco: Never Alcohol Use Standard Drinks/Week Comments Yes 35 (1 standard drink = 0.6 oz pu re alcohol) per week Sex and Gender Information Value Date Recorded Sex Assigned at Male 10/23/2024 2:20 PM CDT Legal Sex Male 10:22 PM CORN HUSKER Gender Identity Male 10/23/2024 2:20 PM CDT Sexual Orientation Not on file documented as of this encounter Plan of Treatment Upcoming Encounters Date Type Department Care Team (Late st Contact Info) Description 01/25/2025 11:10 AM CDT Allied Health/Nurse Visit [facility] THREE [facility], [facility] [address] [place], [place] [id number] Roger Sims MD [facility]. Rad[address] [place] [address] 02/09/2025 8:40 AM CORN HUSKER Office Visit [facility] Pul[facility]ology Specialty Clinic - [address] [address] Mahin Aguirre MD [address] [place] [address] [address] [place], [place] [phone] 03/19/2025 10:45 AM CORN HUSKER Office Visit [facility] [address] [place] [phone] Jordan Peter MD Three [facility]. RADHAMES [address] [place], [place] [address] Emmie Crane PA 3 [facility], [address] [place] [address] 04/07/2025 10:00 AM CORN HUSKER Office Visit [facility] [address] [place] [address] Gela Ricci APRN 3 [facility], [facility] [address] [place] [address] documented as of this encounter Visit Diagnoses Not on filedocumented in this encounter Care Teams Senior Engineering Associate Relationship Specialty Start Date End Date Ro Schafer PA [address] [place] [id number] PCP - General PHYSICIAN ACUTE CARE ASSISTANT 12/06/21 documented as of this encounter
--- OUTSIDE RECORDS SUMMARY | 2024-12-29 00:35 | XMS_ITS | Encounter Summary ---
Author Organization [facility] Address [address] [place] [address] Care Team Providers Care Appointment Setter Name Role Phone Schafer, Ro PEPE Primary Care Provider [phone] Encounter Details Date Type Department Care Team (Late st Contact Info) Description 04/04/2022 [facility], [facility] [address] [place] [address] Claudy Casey MA Social History Tobacco Use Types Packs/Day Years Used Date Smoking Tobacco: Former Cigarettes Q uit: 2006 Smokeless Tobacco: Never Alcohol Use Standard Drinks/Week Comments Yes 46.7 (1 standard drink = 0.6 oz pure alcohol) per week Sex and Gender Information Value Date Recorded Sex Assigned at Male 10/23/2024 2:20 PM CDT Legal Sex Male 10:22 PM MOVEMAN Gender Identity Male 10/23/2024 2:20 PM CDT Sexual Orientation Not on file COVID-19 Exposure Response Date Recorded In the last 10 days, have yo u been in contact with someone who was confirmed or suspected to have Coronavirus/COVID-19? No / Unsure 03/20/2022 10:31 AM MOVEMAN documented as of this encounter Plan of Treatment Upcoming Encounters Date Type Department Care Team (Late st Contact Info) Description 01/25/2025 11:10 AM CDT [facility] [address] [place], [place] [phone] Roger Sims MD [facility]. [facility] [address] [place], [place] [phone] 02/09/2025 8:40 AM MOVEMAN Office Visit [facility] Pulmonology Specialty Clinic - [address] [phone] Mahin Aguirre MD 3rd [facility] [address] [place] [address] 03/19/2025 10:45 AM MOVEMAN Office Visit [facility] [address] [place] [phone] Jordan Peter MD Three [facility]. [address] [place], [place] [address] Emmie Crane PA 3 [facility], [address] [place] [address] 04/07/2025 10:00 AM MOVEMAN Office Visit [facility] [address] Gela Ricci, TURNSTILE ATTENDANT 3 [facility], [address] [place], [place] [address] documented as of this encounter Procedures Procedure Name Priority Date/Time Associated Diagnosis Comments LIPID PANEL Routine 02/20/2023 BUN (OUTSIDE LAB) Routine 04/13/2022 HEMATOCRIT Routine 04/13/2022 CREATININE Routine 04/13/2022 BASIC METABOLIC PANEL Routine 04/03/2022 documented in this encounter Results * LIPID PANEL (02/20/2023) [facility] CHOLESTEROL 210 TRIGLYCERIDES 207 HDL 84 LDL (CALCULATED) 96 NON HDL CHOLESTEROL 126 us Default History Genericprovider LABORATORY Edited Result - Final * HEMATOCRIT (04/13/2022) [facility] HCT 40.4 04/13/2022 us Default History Genericprovider LABORATORY Edited Result - Final * CREATININE (04/13/2022) [facility] CREATININE S/P/B 1.11 0.7 - 1.3 EGFR NON-AFR. AMER. 71 <=90 04/13/2022 us Default History Genericprovider LABORATORY Final Result * BUN (OUTSIDE LAB) (04/13/2022) [facility] BUN 23 04/13/2022 us Default History Genericprovider LAB-OUTSIDE/ABST RACTED Final Result * BASIC METABOLIC PANEL (04/03/2022) [facility] SODIUM S/P/B 141 POTASSIUM S/P/B 3.9 CO2 31 CHLORIDE S/P/B 103 GLUCOSE 87 mg/dL CALCIUM S/P/B 9.1 BUN 19 CREATININE S/P/B 1.23 0.7 - 1.3 EGFR NON-AFR. AMER. 63 <=90 04/03/2022 us Default History Genericprovider LABORATORY Final Result documented in this encounter Visit Diagnoses Not on filedocumented in this encounter Care Teams Appointment Setter Relationship Specialty Start Date End Date Ro Schafer PA [address] [place] [address] PCP - General PHYSICIAN NUCLEAR SUPERVISING OPERATOR 12/06/21 documented as of this encounter
--- NOTE | 2024-12-29 11:55 | WPDANESEPPF ---
Anes - Initial Pre Proc Eval Procedure: Operation Date: 12/29/24 13:00 Proposed Procedures p Diagnostic Colonoscopy - Sylvester Rg MD Date/Time: 12/29/24 11:55 Surgeon: Sylvester Rg MD Pre Op Diagnosis: melena Patient Data Age: 74 Gender: M Height: 1.78 m Weight: 84 kg Allergies Allergy/AdvReac Type Severity Reaction Status Date / Time amlodipine AdvReac Intermediate Other Verified 12/29/24 11:54 latex tape AdvReac Intermediate Swelling Uncoded 12/17/24 09:28 Home Medications ?Medication ?Instructions ?Recorded ?Confirmed ?Type tamsulosin 0.4 mg capsule 0.4 mg PO DAILY 12/20/21 12/17/24 History aspirin 81 mg tablet,delayed 81 mg PO DAILY 12/21/21 12/17/24 History release (Adult Aspirin Regimen) finasteride 5 mg tablet 5 mg PO DAILY 12/21/21 12/17/24 History ppmogybgpmqf-uaq-bcfkr acid-vit 1 tablet PO DAILY 01/31/22 12/17/24 History K-lycop 400 mcg-20 mcg-370 mcg tablet (One-A-Day Men's 50 Plus (with vitamin K)) furosemide 40 mg tablet 40 mg PO QAM 08/06/22 12/17/24 History hydralazine 50 mg tablet 50 mg PO BID 08/06/22 12/17/24 History atorvastatin 20 mg tablet 20 mg PO DAILY 03/20/23 12/17/24 History cholecalciferol (vitamin D3) 25 125 mcg PO DAILY 03/20/23 12/17/24 History mcg (1,000 unit) capsule metoprolol succinate 50 mg 50 mg PO DAILY 09/29/24 12/17/24 History tablet,extended release 24 hr potassium chloride 20 mEq 20 meq PO EVERY OTHER DAY 09/29/24 12/17/24 History tablet,extended release irbesartan 300 mg tablet 150 mg PO DAILY 11/06/24 12/17/24 History omeprazole 20 mg capsule,delayed 20 mg PO DAILY #90 caps 11/26/24 12/17/24 Rx release empagliflozin 10 mg tablet 10 mg PO DAILY 12/18/24 12/18/24 History (Jardiance) Patient hx anesthesia problems: none Family hx anesthesia problems: none Results Review: All pre-operative results and documents have been reviewed as part of the pre-operative evaluation. [facility] Past Medical History Medical History Anemia GERD (gastroesophageal reflux disease) Vitamin D deficiency Renal cancer Right kidney, status post right nephrectomy Nonischemic cardiomyopathy EF 20% -ICD placed 07/13/2022 [facility] Olecranon bursitis of left elbow Rotator cuff injury Hypertension Dyslipidemia H pylori ulcer BPH with urinary obstruction MARLIN on CPAP Sleep study 09/09/2015-[facility] 55.8 with SpO2 < 88% for 21% of the time Surgical History Surgical History H/O kidney removal History of nephrectomy, right Family History Family History Other Hypertension Social History Social History Social History: 12/14/24 very confident with medical forms Smoking packs per day: 1 Smoking cigarettes per day: 20.0 Years smoked: 30 Smoking pack-years: 30.00 Smoking status: Former smoker Tobacco type: cigarettes Alcohol intake: current Drinks per week: 20 Alcohol use details: HARD LIQUOR Substance use: never Substance use type: does not use Lack of Transportation: No Lack of Food: Never True Current Housing: I Have Housing Concerned About Future Housing: No Difficulty Paying Gas/Electric Bills: No Difficulty Paying for Meds: No Currently Unemployed: No Education: High School Diploma/GED Difficulty w/ Childcare or Family Care: No Living arrangements: with family Occupation/Education: retired Gender identity (if verbalized by the patient): Male Spiritual care concerns: No Anes - Eval Final PreProcedure Day of Procedure 12/29/24 11:55 Patient weight: normal Lungs: normal air movement Airway: Mallampati scale class II Neurological: alert and oriented Last oral intake: >/= 8 hours ASA classification: IV Emergent: no Anesthetic plan: proceed Anesthesia type and monitoring: general GIVS and standard monitoring Results Review: All pre-operative results and documents have been reviewed as part of the pre-operative evaluation. HTN, hyperlipidemia, nonischemic CM, ECHO 2022 w LVEF 20%, AICD/pacemaker in place, MARLIN on CPAP, ETOH use noted. Informed Consent: The patient's anesthetic plan and its attendant risks and benefits were discussed with the patient/family/POA. Questions were solicited and answers provided to the satisfaction of the patient/family/POA.
[2024-12-29 11:57] VITALS: BP 113/75; PULSE 85; RESP 20; TEMP 35.9; O2SAT 99; BMI 26.2
[2024-12-29] MEDS: LACTATED RINGERS 1,000 ML 150 ML IV CONT (12:10)
--- NOTE | 2024-12-29 12:44 | PM.HPGS ---
History of Present Illness History of Present Illness Consent: Risks, benefits, and alternatives have been discussed and questions answered. Patient agrees to proceed with procedure. Chief complaint: melena Narrative: Sajan Norman is a 74 year old male with occult blood in stool, had egd earlier this year, Colonoscopy on 05/15/2023 showed a tubular adenoma. Review of Systems Review of Systems: All systems reviewed & are unremarkable except as noted in HPI and below PMFSH Past Medical History Medical History Anemia GERD (gastroesophageal reflux disease) Vitamin D deficiency Renal cancer Right kidney, status post right nephrectomy Nonischemic cardiomyopathy EF 20% -ICD placed 07/13/2022 [facility] Olecranon bursitis of left elbow Rotator cuff injury Hypertension Dyslipidemia H pylori ulcer BPH with urinary obstruction MARLIN on CPAP Sleep study 09/09/2015-[facility] 55.8 with SpO2 < 88% for 21% of the time Surgical History Surgical History H/O kidney removal History of nephrectomy, right Family History Family History Other Hypertension Social History Social History Social History: 12/14/24 very confident with medical forms Smoking packs per day: 1 Smoking cigarettes per day: 20.0 Years smoked: 30 Smoking pack-years: 30.00 Smoking status: Former smoker Tobacco type: cigarettes Alcohol intake: current Drinks per week: 20 Alcohol use details: HARD LIQUOR Substance use: never Substance use type: does not use Lack of Transportation: No Lack of Food: Never True Current Housing: I Have Housing Concerned About Future Housing: No Difficulty Paying Gas/Electric Bills: No Difficulty Paying for Meds: No Currently Unemployed: No Education: High School Diploma/GED Difficulty w/ Childcare or Family Care: No Living arrangements: with family Occupation/Education: retired Gender identity (if verbalized by the patient): Male Spiritual care concerns: No Meds Home Medications and Allergies Home Medications ?Medication ?Instructions ?Recorded ?Confirmed ?Type tamsulosin 0.4 mg capsule 0.4 mg PO DAILY 12/20/21 12/29/24 History aspirin 81 mg tablet,delayed 81 mg PO DAILY 12/21/21 12/29/24 History release (Adult Aspirin Regimen) finasteride 5 mg tablet 5 mg PO DAILY 12/21/21 12/29/24 History ekfgkfzuince-erw-okabu acid-vit 1 tablet PO DAILY 01/31/22 12/29/24 History K-lycop 400 mcg-20 mcg-370 mcg tablet (One-A-Day Men's 50 Plus (with vitamin K)) furosemide 40 mg tablet 40 mg PO QAM 08/06/22 12/29/24 History hydralazine 50 mg tablet 50 mg PO BID 08/06/22 12/17/24 History atorvastatin 20 mg tablet 20 mg PO DAILY 03/20/23 12/29/24 History cholecalciferol (vitamin D3) 25 125 mcg PO DAILY 03/20/23 12/29/24 History mcg (1,000 unit) capsule metoprolol succinate 50 mg 50 mg PO DAILY 09/29/24 12/29/24 History tablet,extended release 24 hr potassium chloride 20 mEq 20 meq PO EVERY OTHER DAY 09/29/24 12/29/24 History tablet,extended release irbesartan 300 mg tablet 150 mg PO DAILY 11/06/24 12/29/24 History omeprazole 20 mg capsule,delayed 20 mg PO DAILY #90 caps 11/26/24 12/29/24 Rx release empagliflozin 10 mg tablet 10 mg PO DAILY 12/18/24 12/29/24 History (Jardiance) Allergies Allergy/AdvReac Type Severity Reaction Status Date / Time amlodipine AdvReac Intermediate Other Verified 12/29/24 11:54 latex tape AdvReac Intermediate Swelling Uncoded 12/17/24 09:28 Vital Signs Vital Signs - 24 hr 12/29/24 11:57 Temperature 96.6 F L Pulse Rate 85 Respiratory Rate 20 Blood Pressure 113/75 Pulse Oximetry 99 Oxygen Delivery Room Air Exam Const: General: comfortable and no acute distress HENMT: Face/Nose/Sinus: Normal nares present Eyes: General: appearance normal, both eyes and all related structures Resp: Auscultation: clear to auscultation bilaterally Cardio: Rate: regular rate Rhythm: regular rhythm GI: Inspection: non-distended GI Palp: Yes Soft to palpation Skin: General skin exam: normal color Extrem: General: normal to inspection Psych: Mental Status: mental status grossly normal Assessment and Plan Assessment and plan (1) History of adenomatous polyp of colon: Code(s): Z86.0101 - Personal history of adenomatous and serrated colon polyps Status: Acute Assessment and Plan: colonoscopy (2) Positive occult stool blood test: Code(s): R19.5 - Other fecal abnormalities Status: Acute
[2024-12-29 12:56] VITALS: BP 102/70; PULSE 77; RESP 18; O2SAT 100
[2024-12-29 13:06] VITALS: BP 119/78; PULSE 76; RESP 21; O2SAT 100
[2024-12-29 13:16] VITALS: BP 112/71; PULSE 72; RESP 15; O2SAT 100
== END 2024-12-29 13:20 | disposition home or self-care (01) ==
PROVIDERS: PCP Physician Assistant Medical; Referring Provider Nurse Practitioner Family; Visit Provider Internal Medicine Gastroenterology
PROC: 0DJD8ZZ Inspection of Lower Intestinal Tract, Via Natural or Artificial Opening Endoscopic (ICD-10-PCS; CPT 45378; principal; 2024-12-29 13:00)
DX: R19.5 Other fecal abnormalities (principal); I10 Essential (primary) hypertension; E78.5 Hyperlipidemia, unspecified; N40.1 Benign prostatic hyperplasia with lower urinary tract symptoms; G47.33 Obstructive sleep apnea (adult) (pediatric); Z85.528 Personal history of other malignant neoplasm of kidney; D64.9 Anemia, unspecified; E55.9 Vitamin D deficiency, unspecified; I42.8 Other cardiomyopathies; Z79.82 Long term (current) use of aspirin; Z79.84 Long term (current) use of oral hypoglycemic drugs; Z99.89 Dependence on other enabling machines and devices; Z90.5 Acquired absence of kidney; Z95.0 Presence of cardiac pacemaker; Z87.11 Personal history of peptic ulcer disease; Z86.0100 Personal history of colon polyps, unspecified; Z87.891 Personal history of nicotine dependence
CPT/HCPCS: 45378; J2003; J2704; J7120

== ENCOUNTER 2025-01-22 09:52 | Outpatient (RCR) | payer MEDICARE, SELFPAY ==
--- NOTE | 2025-01-22 10:50 | PTOPEVDC ---
Assessment and note entered by Tricia Ervin, PT Thank you for referring Sajan Norman to [facility].? An evaluation has been completed. No further treatment is needed. Evaluation Information Assessment Status Evaluation and Discharge ICD-10 Condition Codes (PT) Dizziness and Giddiness R42 Subjective Information Pt states hasn't had any spells in about two weeks . Has a defibrillator, and it went off and then seemed like was having dizzy spells after that more. States would note would bend over and get dizzy, or would get hot and start getting dizzy. Fell in the house a couple times. 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 Followed up with cardiology, adjusted the defibrillator and changed medication. Sensation of passing out, loss of vision, and wooziness. did not have symptoms with going to lay down in bed. Twice passed out with first getting up. Reported Pain Level Pain Score 0: Self Report Assessment PT Clinical Summary Pt presents for evaluation of his dizziness. He noted it happened wiht bending over and returning to standing, or when he would get hot and sweaty. He states he would feel woozy or like he was going to pass-out and not spinning. States also never had this happen with laying down in bed. He reports he noted this began happening at the same time his defibrillator went off and has since followed up with cardiology for adjustment of defibrillator and medication changes. He has not had dizziness in two week, had no signs or symptoms with BPPV testing, nor with position changes including squat bending x 10 reps in quick succession. It appears his dizziness has resolved at this time so no plan of care with therapy is required. He was educated if symptoms return to speak with his PCP about return to therapy if needed. Plan of Care PT Services Indicated No
== END 2025-01-22 11:32 | disposition home or self-care (01) ==
LOC: ANHHIPT 09:52
PROVIDERS: PCP Physician Assistant Medical; Visit Provider Physician Assistant Medical
DX: R42 Dizziness and giddiness (principal)
CPT/HCPCS: 99199